=== PATIENT | female | born 1990 | race Two or more races ===

== ENCOUNTER 2024-11-11 17:37 | Inpatient (IN) | payer MEDICAID, OTHER ==
[~2024-11-11] VITALS: Ht 162.6 cm; Wt 113.7 kg
[2024-11-11 18:55] LABS: Basophils # (auto) 0 10 ^3/uL (0-0.2); Basophils % (auto) 0.2 % (0.0-2.0); Eosinophils # (auto) 0 10 ^3/uL (0-0.8); Hematocrit 42.1 % (36.0-46.0); Hemoglobin 14.1 g/dL (12.2-16.2); Lymphocytes # (auto) 1.2 10 ^3/uL (0.4-5.4); Lymphocytes % (auto) 7.1 % (10.0-50.0); Mean Corpuscular Hemoglobin 32.2 pg (28.0-32.0); Mean Corpuscular Hgb Conc. 33.5 g/dL (32.0-36.0); Mean Corpuscular Volume 96.1 fL (80.0-100.0); Monocytes # (auto) 0.5 10 ^3/uL (0-1.3); Monocytes % (auto) 2.9 % (0.0-12.0); Neutrophils # (auto) 15.2 10 ^3/uL (1.6-8.6); Neutrophils % (auto) 89.8 % (37.0-80.0); Nucleated Red Blood Cells % 0.1 %; Platelet Count (auto) 301 10^3/uL (140-450); Red Blood Cells 4.38 10^6/uL (4.0-5.20); Red Cell Distribution Width 12.4 % (11.8-14.3); White Blood Cell 16.9 10^3/uL (4.4-10.8)
[2024-11-11] MEDS: ONDANSETRON ODT 4 MG TAB PO ONE (18:56)
[2024-11-11] MEDS: ACETAMINOPHEN/CODEINE#3 (300/30mg) TAB PO ONE (18:56)
[2024-11-11 18:57] LABS: Urine Bacteria FEW /hpf (None Seen); Urine Blood 2+ /uL (Negative); Urine Clarity Turbid (Clear); Urine Color Light-Orange (Yellow); Urine Mucus FEW (None Seen); Urine Protein, UAD 1+ (Negative); Urine Specific Gravity 1.033 (1.001-1.035); Urine Squamous Epithelial Cell FEW /hpf (<5); Urine Urobilinogen Normal (Negative); Urine WBC 1 /HPF (0-5)
--- NOTE | 2024-11-11 19:00 | ED.PDOC ---
GI ASSESSMENT HPI Comments 34-year-old female presents to ER with complaints of abdominal pain x1 day. Patient reports that she woke up with 8/10 left lower quadrant abdominal pain with radiation towards the left upper quadrant/epigastric region and associated n/v and diarrhea at 8:30 a.m. this morning. Denies use of medications for current symptoms. Patient presents to ER ambulatory on arrival, in mild distress and states she was doing "shots" of alcohol last night. Denies fever, body aches, chills, hematemesis, bloody diarrhea, chest pain, changes in urination or any further symptoms/complaints Chief Complaint: Abdominal Pain Time Seen by MD: 18:16 Primary Care Provider: UNKNOWN Reviewed Notes: Nurses Notes, Medications, Allergies Allergies: Coded Allergies: NO KNOWN ALLERGIES (Unverified , 11/11/24) Information Source: Patient Mode of Arrival: Ambulatory Past Medical History PAST MEDICAL HISTORY: Denies Surgical History: Denies all surgeries REGULATORY CONSULTANT History: No Pertinent REGULATORY CONSULTANT History Family History Family History: Unknown Social History Smoker: Non-Smoker Alcohol: Occasionally Drugs: Marijuana Lives In: Home Constitutional: denies: chills, diaphoresis, fatigue, fever, malaise, sweats, weakness, others EENTM: denies: blurred vision, double vision, ear bleeding, ear discharge, ear drainage, ear pain, ear ringing, eye pain, eye redness, hearing loss, mouth pain, mouth swelling, nasal discharge, nose bleeding, nose congestion, nose pain, photophobia, tearing, throat pain, throat swelling, voice changes, others Respiratory: denies: cough, hemoptysis, orthopnea, SOB at rest, shortness of breath, SOB with excertion, stridor, wheezing, others Cardiovascular: denies: chest pain, dizzy spells, diaphoresis, Dyspnea on exertion, edema, irregular heart beat, left arm pain, lightheadedness, palpitations, PND, syncope, others Gastrointestinal: reports: others (As stated in HPI) Genitourinary: denies: abnormal vagina bleeding, burning, dyspareunia, dysuria, flank pain, frequency, hematuria, incontinence, pain, , vagina discharge, urgency, others Neurological: denies: dizziness, fainting, headache, left sided numbness, left sided weakness, numbness, paresthesia, pre-existing deficit, right sided numbnes s, right sided weakness, seizure, speech problems, tingling, tremors, weakness, others Musculoskeletal: denies: back pain, gout, joint pain, joint swelling, muscle pain, muscle stiffness, neck pain, others Integumetry: denies: bruises, change in color, change in hair/nails, dryness, laceration, lesions, lumps, rash, wounds, others Allergic/Immunocompromised: denies: Difficulty Healing, Frequent Infections, Hives, Itching, others Hematologic/Lymphatic: denies: anemia, blood clots, easy bleeding, easy bruising, swollen glands, others Endocrine: denies: excessive hunger, excessive sweating, excessive thirst, excessive urination, flushing, intolerance to cold, intolerance to heat, unexplained weight gain, unexplained weight loss, others Psychiatric: denies: anxiety, bipolar disorder, depression, hopeless, panic disorder, schizophrenia, sleepless, suicidal, others Physical Exam General Appearance: Mild Distress, Obese HEENT: PERRL/EOMI Neck: Full Range of Motion, Non-Tender, Normal Respiratory: Chest Non-Tender, Lungs Clear, No Accessory Muscle Use, No Respiratory Distress, Normal Breath Sounds Cardiovascular: No Murmur, No Gallop, Regular Rate/Rhythm Breast Exam: Deferred Gastrointestinal: No Organomegaly, No Pulsatile Mass, Normal Bowel Sounds, Soft, Other (TTP to left lower quadrant of abdomen and left upper quadrant/epigastric region abdomen noted. No rebound/guarding noted. No hernia/masses/skin changes appreciated. No other tenderness to abdomen noted) Genitalia: Deferred Pelvic: Deferred Rectal: Deferred Extremities: Normal capillary refill, Normal range of motion Neurologic: Alert, No Motor Deficits, No Sensory Deficits Cerebellar Function: Normal Reflexes: Normal Skin: Dry, Normal Color, Warm Peripheral Pulses: 2+ Radial (R), 2+ Radial (L), 2+ Brachial (R), 2+ Brachial ( L) Lymphatic: No Adenopathy Was a procedure done? Was a procedure done?: No Sedation Sedation?: No GI differential Dx Differential Diagnosis: AAA, Appendicitis, Ischemic Bowel, Trauma intraabdominal, UTI X-Ray, Labs, Meds, VS Vital Signs Date Time Temp Pulse Resp B/P (MAP) Pulse Ox O2 Delivery O2 Flow Rate FiO2 11/11/24 20:31 68 16 127/89 11/11/24 20:26 97.7 68 16 127/89 (102) 100 97.7 11/11/24 18:40 98.0 98 19 134/78 (96) 98 98.0 11/11/24 18:40 98 19 98 Room Air 11/11/24 18:12 98.0 98 19 134/78 (96) 99 Lab Test 11/11/24 20:43 11/11/24 19:26 11/11/24 18:29 11/11/24 18:10 Range/Units Lactic Acid Level 2.0 0.4-2.0 mmol/L Influenza Type A Antigen Negative Negative Influenza Type B Antigen Negative Negative SARS-CoV-2 Antigen (Rapid) Negative NEGATIVE White Blood Count 16.9 H 4.4-10.8 10^3/uL Red Blood Count 4.38 4.0-5.20 10^6/uL Hemoglobin 14.1 12.2-16.2 g/dL Hematocrit 42.1 36.0-46.0 % Mean Corpuscular Volume 96.1 80.0-100.0 fL Mean Corpuscular Hemoglobin 32.2 H 28.0-32.0 pg Mean Corpuscular Hemoglobin Concent 33.5 32.0-36.0 g/dL Red Cell Distribution Width 12.4 11.8-14.3 % Platelet Count 301 140-450 10^3/uL Mean Platelet Volume 9.0 6.9-10.8 fL Neutrophils (%) (Auto) 89.8 H 37.0-80.0 % Lymphocytes (%) (Auto) 7.1 L 10.0-50.0 % Monocytes (%) (Auto) 2.9 0.0-12.0 % Eosinophils (%) (Auto) 0.0 0.0-7.0 % Basophils (%) (Auto) 0.2 0.0-2.0 % Neutrophils # (Auto) 15.2 H 1.6-8.6 10 ^3/uL Lymphocytes # (Auto) 1.2 0.4-5.4 10 ^3/uL Monocytes # (Auto) 0.5 0-1.3 10 ^3/uL Eosinophils # (Auto) 0 0-0.8 10 ^3/uL Basophils # (Auto) 0 0-0.2 10 ^3/uL Nucleated Red Blood Cells 0.1 % Sodium Level 135 L 136-145 mmol/L Potassium Level 3.9 3.5-5.1 mmol/L Chloride Level 104 98-107 mmol/L Carbon Dioxide Level 18 L 20-31 mmol/L Anion Gap 13 5-15 Blood Urea Nitrogen 10 9-23 mg/dL Creatinine 0.67 0.550-1.02 mg/dL Glomerular Filtration Rate Calc 118 >90 mL/min BUN/Creatinine Ratio 14.9 10.0-20.0 Serum Glucose 113 H 74-106 mg/dL Calcium Level 9.9 8.7-10.4 mg/dL Total Bilirubin 0.8 0.2-1.0 mg/dL Aspartate Amino Transferase (AST) 34 13-40 U/L Alanine Aminotransferase (ALT) 15 7-40 U/L Alkaline Phosphatase 72 46-116 U/L Lactate Dehydrogenase 257 H 120-246 U/L Lipase 1275 H 12-53 U/L Urine Color Light-orange Yellow Urine Clarity Turbid H Clear Urine pH 6.0 5.0-9.0 Urine Specific [place] 1.033 1.001-1.035 Urine Protein 1+ H Negative Urine Ketones 1+ H Negative Urine Blood 2+ H Negative /uL Urine Nitrite Negative Negative Urine Bilirubin Negative Negative Urine Urobilinogen Normal Negative mg/dL Urine Leukocyte Esterase Negative Negative /uL Urine RBC 3 0 - 4 /hpf Urine Microscopic WBC 1 0-5 /HPF Urine Squamous Epithelial Cells Few <5 /hpf Urine Bacteria Few H None Seen /hpf Urine Mucus Few None Seen Urine Glucose Normal Normal mg/dL Current Medications Medications (Trade) Dose Ordered Sig/Adriana Route Start Time Stop Time Status Last Admin Sodium Chloride 1,000 ml @ 1,000 mls/hr Q1H ONCE IV 11/11/24 18:45 11/11/24 19:44 DC 11/11/24 20:47 Ondansetron HCl (Zofran Po) 4 mg ONCE ONCE PO 11/11/24 18:45 11/11/24 18:46 DC 11/11/24 18:56 Acetaminophen/ Codeine Phosphate (Tylenol W/Cod #3 Tablet) 1 tab ONCE ONCE PO 11/11/24 18:45 11/11/24 18:46 DC 11/11/24 18:56 Sodium Chloride 1,000 ml @ 1,000 mls/hr Q1H ONCE IV 11/11/24 19:45 11/11/24 20:44 DC 11/12/24 01:02 Morphine Sulfate 2 mg ONCE ONCE IM 11/11/24 20:30 11/11/24 20:31 DC 11/11/24 20:31 Ciprofloxacin 200 ml @ 200 mls/hr ONCE ONCE IV 11/11/24 20:30 11/11/24 21:29 DC 11/11/24 20:48 Metronidazole 100 ml @ 100 mls/hr ONCE ONCE IV 11/11/24 20:30 11/11/24 21:29 DC 11/11/24 21:01 Sodium Chloride 1,000 ml @ 120 mls/hr Q8H20M IV 11/11/24 21:00 11/12/24 02:34 Morphine Sulfate 2 mg Q4HPRN PRN IV 11/11/24 21:00 11/12/24 02:06 PATIENT: TIMO FARR ACCT: [id number] UNIT: [id number] : 1990 LOC: ER ROOM / BED: / AGE / SEX: 34 / F ADM STATUS: REG ER SERVICE 152 ORDERING PHYSICIAN: MICHELLE CLINE PROCEDURE(s): ABPL - CT AB PEL WO CON-NO ORAL OR IV REASON: abdominal pain ORDER NUMBER(s): [id number], ACCESSION NUMBER(s): [id number] CLINICAL HISTORY: abdominal pain TECHNIQUE: CT of the abdomen and pelvis was performed without intravenous contrast. This exam was performed according to our departmental dose optimization program. Up-to-date CT equipment and radiation dose reduction techniques are utilized as appropriate. CTDI: 25.15 DLP: 1295.37 WID: COMPARISON: None FINDINGS: Lower Thorax: Unremarkable. Liver and Biliary system: Hepatomegaly with the right lobe of the liver measuring 19 cm craniocaudal. Otherwise unremarkable. Spleen: Unremarkable. Adrenal Glands and Kidneys: Unremarkable. Pancreas and Retroperitoneum: There is peripancreatic fluid and soft tissue stranding. There is no loculated fluid collection. There is no retroperitoneal lymphadenopathy. Aorta and Major Vessels: Unremarkable. Bowel, Mesentery and Peritoneal space: Mild ascites predominantly in the pelvis. Normal appendix. There is submucosal fatty deposition in the ascending colon and hepatic flexure. There is no free air or fluid collection. Pelvis: The uterus is grossly unremarkable. There are small hypodensities in both ovaries probably follicular cysts although not optimally evaluated by CT. There is no pelvic lymphadenopathy. The urinary bladder is mildly distended. Abdominal wall and Osseous Structures: Small fat containing umbilical hernia. No destructive osseous lesion. Minor lower thoracic and lumbar spondylosis. IMPRESSION: 1. Acute pancreatitis. 2. Mild hepatomegaly. 3. Submucosal fatty deposition in the ascending colon and hepatic flexure which may be incidental or related to prior inflammatory bowel disease. ATED BY: DES MARTÍNEZ MD DICTATED DATE/TIME: 11/11/242006 SIGNED BY: DES MARTÍNEZ MD SIGNED DATE/TIME: 11/11/242006 CC: CBC reviewed-WBC 16.9, neutrophils 89.8 BMP reviewed-sodium level 135 Lipase 1275 reviewed Liver enzymes reviewed without any significant abnormalities Urinalysis reviewed-urine ketones 1+, urine blood 2+ CT abdomen/pelvis without contrast reviewed waiver signed Hep-Lock IV ordered NS 2 L IV ordered Zofran 4 mg p.o. ordered Tylenol # 3 one tablet p.o. ordered Morphine 2 mg IM ordered Cipro 400 mg IV ordered Metronidazole 500 mg IV ordered NPO diet placed Patient admitted to hospitalist for acute pancreatitis and need for IV hydration/pain control Time of 1ST Reevaluation: 18:44 Reevaluation 1ST: N/A Time of 2ND Reevaluation: 20:10 Reevaluation 2ND: Improved Patient Education/Counseling: Diagnosis, Treatment, Prognosis, Need For Follow Up Family Education/Counseling: No Family Present Departure 1 Departure Time of Disposition: 20:12 Impression: Primary Impression: Acute pancreatitis Qualified Codes: K85.20 - Alcohol induced acute pancreatitis without necrosis or infection Disposition: ADMITTED INPATIENT Condition: Stable Critical Care Note Critical Care Time?: No Stability Stability form required: No Heart Score Heart Score: Heart Score Response (Comments) Value History N/A 0 EKG N/A 0 Age N/A 0 Risk Factors N/A 0 Troponin N/A 0 Total 0 MICHELLE CLINE Nov 11, 2024 19:00
[2024-11-11 19:02] LABS: Chloride 104 mmol/L (98-107); Potassium 3.9 mmol/L (3.5-5.1)
[2024-11-11 19:03] LABS: Anion Gap 13 (5-15)
[2024-11-11 19:04] LABS: Calcium 9.9 mg/dL (8.7-10.4)
[2024-11-11 19:09] LABS: BUN/Creatinine Ratio 14.9 (10.0-20.0); Blood Urea Nitrogen 10 mg/dL (9-23); Carbon Dioxide 18 mmol/L (20-31); Glucose 113 mg/dL (74-106); Sodium 135 mmol/L (136-145)
[2024-11-11 19:18] LABS: Lipase 1275 U/L (12-53)
[2024-11-11] MEDS ORDERED: MORPHINE SULFATE INJ 2 MG/ml SYRG IV ONE (20:00)
--- NOTE | 2024-11-11 20:10 | DVH ---
CLINICAL HISTORY: abdominal pain TECHNIQUE: CT of the abdomen and pelvis was performed without intravenous contrast. This exam was per formed according to our departmental dose optimization program. Up-to-date CT equipment and radiation dose reduction techniques are utilized as appropriate. CTDI: 25.15 DLP: 1295.37 WID: COMPARISON: None FINDINGS: Lower Thorax: Unremarkable. Liver and Biliary system: Hepatomegaly with the right lobe of the liver measuring 19 cm craniocaudal. Otherwise unremarkable. Spleen: Unremarkable. Adrenal Glands and Kidneys: Unremarkable. Pancreas and Retroperitoneum: There is peripancreatic fluid and soft tissue stranding. There is no lo culated fluid collection. There is no retroperitoneal lymphadenopathy. Aorta and Major Vessels: Unremarkable. Bowel, Mesentery and Peritoneal space: Mild ascites predominantly in the pelvis. Normal appendix. Th ere is submucosal fatty deposition in the ascending colon and hepatic flexure. There is no free air o r fluid collection. Pelvis: The uterus is grossly unremarkable. There are small hypodensities in both ovaries probably fo llicular cysts although not optimally evaluated by CT. There is no pelvic lymphadenopathy. The urinar y bladder is mildly distended. Abdominal wall and Osseous Structures: Small fat containing umbilical hernia. No destructive osseous lesion. Minor lower thoracic and lumbar spondylosis. IMPRESSION: 1. Acute pancreatitis. 2. Mild hepatomegaly. 3. Submucosal fatty deposition in the ascending colon and hepatic flexure which may be incidental or related to prior inflammatory bowel disease.
[2024-11-11] MEDS ORDERED: cefTRIAXone 1GM/50ML D5W 50 ML IV ONE (20:30)
[2024-11-11] MEDS: MORPHINE SULFATE INJ 2 MG/ml SYRG IM ONE (20:31)
[2024-11-11 20:39] LABS: COVID19 ANTIGEN SOFIA FIA NEGATIVE (NEGATIVE); Rapid Influenza A Negative (Negative); Rapid Influenza B Negative (Negative)
[2024-11-11 20:40] LABS: Bilirubin, Total 0.8 mg/dL (0.2-1.0)
[2024-11-11] MEDS: SODIUM CHLORIDE 0.9% 1,000 ML IV ONE (20:47)
[2024-11-11] MEDS: CIPROFLOXACIN 400MG/200ML 200 ML IV ONE (20:48)
[2024-11-11] MEDS: metroNIDAZOLE 500MG/100ML 100 ML IV ONE (21:01)
--- NOTE | 2024-11-11 22:06 | DVHHP2 ---
History of Present Illness Reason for Visit: Acute pancreatitis History of Present Illness The patient is a 34-year-old female who denies past medical history presented to [facility] ED with complaint of abdominal pain. Patient reports that she woke up with 8/10 left lower quadrant abdominal pain with radiation towards the left upper quadrant/epigastric region and associated nausea, vomiting, and diarrhea this morning. Patient was seen and evaluated in the ED, laboratory data shows WBC 16.9, platelets 301, sodium 135, potassium 3.9, BUN 10, creatinine 0.67, GFR 118, glucose 113, lipase 1275. CT of the abdomen/pelvis revealing acute pancreatitis, mild hepatomegaly. Patient was started on IV a ntibiotic regimen Rocephin, IV Flagyl, please see medication orders section in the computer. On my assessment, patient denied chest pain, no headache, no dizziness, no shortness of breaths, no abdominal pain, nausea or vomiting at this moment, no fever, no chills. Patient was admitted for further evaluation and medical management. Past Medical History Denies past medical history Past Surgical History Denies all surgeries Family History Reviewed, noncontributory to the management of this case. Past Social History The patient lives at home, denies smoking, alcohol or illicit drugs abuse. Review of Systems Constitutional: No: Fever, Chills, Sweats, Weakness, Malaise, Other Eyes: No: Pain, Vision change, Conjunctivae inflammation, Eyelid inflammation, Other, Redness ENT: No: Ear pain, Ear discharge, Nose pain, Nose discharge, Nose congestion, Mouth pain, Mouth swelling, Throat pain, Throat swelling, Other Respiratory: No: Cough, Dry, Shortness of breath, SOB with excertion, Wheezing, Hemoptysis, Pleuritic Pain, Sputum, Wheezing, Other Cardiovascular: No: Chest Pain, Palpitations, Orthopnea, Paroxysmal Noc. Dyspnea, Edema, Lt Headedness, Other Gastrointestinal: Nausea, Vomiting, Abdominal Pain, Diarrhea; No: Constipation, Melena, Hematochezia, Other Genitourinary: No Dysuria, No Frequency, No Incontinence, No Hematuria, No Retention, No Other Musculoskeletal: No: other, neck pain, shoulder pain, arm pain, back pain, hand pain, leg pain, foot pain Skin: No: Rash, Lesions, Jaundice, Bruising, Other Neurological: No: Weakness, Numbness, Incoordination, Change in speech, Confusion, Seizures, Other Allergies: Coded Allergies: NO KNOWN ALLERGIES (Unverified , 11/11/24) Medications Current Medications Medications Dose Ordered Sig/Adriana Route Start Time Stop Time Status Last Admin Dose Admin Ceftriaxone Sodium 50 ml @ 100 mls/hr DAILY@09 IV 11/12/24 09:00 Metronidazole 100 ml @ 100 mls/hr Q8HR IV 11/12/24 06:00 Sodium Chloride 1,000 ml @ 120 mls/hr Q8H20M IV 11/11/24 21:00 Acetaminophen/ Hydrocodone Bitart 1 tab Q4HP PRN PO 11/11/24 21:00 Ondansetron HCl 4 mg Q4HP PRN IV 11/11/24 21:00 Acetaminophen 650 mg Q6HP PRN PO 11/11/24 21:00 Morphine Sulfate 2 mg Q4HPRN PRN IV 11/11/24 21:00 Exam Vital Signs Vital Signs Date Time Temp Pulse Resp B/P (MAP) Pulse Ox O2 Delivery O2 Flow Rate FiO2 11/11/24 20:31 68 16 127/89 11/11/24 20:26 97.7 100 97.7 11/11/24 18:40 Room Air General Appearance: Alert, Oriented X3, Cooperative, No acute distress HEENT: Atraumatic, PERRLA, EOMI, Mucous membr. moist/pink Respiratory: Clear to auscultation, Normal air movement Cardiovascular: Regular rate, Normal S1, Normal S2, No murmurs Abdominal: Normal bowel sounds, Soft, No hepatospenomegaly, No masses, Other (Reports tenderness) Extremities: No clubbing, No cyanosis, No edema, Normal pulses, No tenderness/swelling Skin: No rashes, No breakdown, No significant lesion Neuro: Normal gait, Normal speech, Strength at 5/5 X4 ext, Normal tone, Sensation intact, Cranial nerves 3-12 NL, Reflexes 2+ Psych/Mental Status: Mental status NL, Mood NL Labs/Xrays Labs Test 11/11/24 20:43 11/11/24 19:26 11/11/24 18:29 11/11/24 18:10 Range/Units Lactic Acid Level 2.0 0.4-2.0 mmol/L Influenza Type A Antigen Negative Negative Influenza Type B Antigen Negative Negative SARS-CoV-2 Antigen (Rapid) Negative NEGATIVE White Blood Count 16.9 H 4.4-10.8 10^3/uL Red Blood Count 4.38 4.0-5.20 10^6/uL Hemoglobin 14.1 12.2-16.2 g/dL Hematocrit 42.1 36.0-46.0 % Mean Corpuscular Volume 96.1 80.0-100.0 fL Mean Corpuscular Hemoglobin 32.2 H 28.0-32.0 pg Mean Corpuscular Hemoglobin Concent 33.5 32.0-36.0 g/dL Red Cell Distribution Width 12.4 11.8-14.3 % Platelet Count 301 140-450 10^3/uL Mean Platelet Volume 9.0 6.9-10.8 fL Neutrophils (%) (Auto) 89.8 H 37.0-80.0 % Lymphocytes (%) (Auto) 7.1 L 10.0-50.0 % Monocytes (%) (Auto) 2.9 0.0-12.0 % Eosinophils (%) (Auto) 0.0 0.0-7.0 % Basophils (%) (Auto) 0.2 0.0-2.0 % Neutrophils # (Auto) 15.2 H 1.6-8.6 10 ^3/uL Lymphocytes # (Auto) 1.2 0.4-5.4 10 ^3/uL Monocytes # (Auto) 0.5 0-1.3 10 ^3/uL Eosinophils # (Auto) 0 0-0.8 10 ^3/uL Basophils # (Auto) 0 0-0.2 10 ^3/uL Nucleated Red Blood Cells 0.1 % Sodium Level 135 L 136-145 mmol/L Potassium Level 3.9 3.5-5.1 mmol/L Chloride Level 104 98-107 mmol/L Carbon Dioxide Level 18 L 20-31 mmol/L Anion Gap 13 5-15 Blood Urea Nitrogen 10 9-23 mg/dL Creatinine 0.67 0.550-1.02 mg/dL Glomerular Filtration Rate Calc 118 >90 mL/min BUN/Creatinine Ratio 14.9 10.0-20.0 Serum Glucose 113 H 74-106 mg/dL Calcium Level 9.9 8.7-10.4 mg/dL Total Bilirubin 0.8 0.2-1.0 mg/dL Aspartate Amino Transferase (AST) 34 13-40 U/L Alanine Aminotransferase (ALT) 15 7-40 U/L Alkaline Phosphatase 72 46-116 U/L Lactate Dehydrogenase 257 H 120-246 U/L Lipase 1275 H 12-53 U/L Urine Color Light-orange Yellow Urine Clarity Turbid H Clear Urine pH 6.0 5.0-9.0 Urine Specific [place] 1.033 1.001-1.035 Urine Protein 1+ H Negative Urine Ketones 1+ H Negative Urine Blood 2+ H Negative /uL Urine Nitrite Negative Negative Urine Bilirubin Negative Negative Urine Urobilinogen Normal Negative mg/dL Urine Leukocyte Esterase Negative Negative /uL Urine RBC 3 0 - 4 /hpf Urine Microscopic WBC 1 0-5 /HPF Urine Squamous Epithelial Cells Few <5 /hpf Urine Bacteria Few H None Seen /hpf Urine Mucus Few None Seen Urine Glucose Normal Normal mg/dL PATIENT: TIMO FARR ACCT: [id number] UNIT: [id number] : 1990 LOC: ER ROOM / BED: / AGE / SEX: 34 / F ADM STATUS: REG ER SERVICE 36 ORDERING PHYSICIAN: MICHELLE CLINE PROCEDURE(s): ABPL - CT AB PEL WO CON-NO ORAL OR IV REASON: abdominal pain ORDER NUMBER(s): [id number], ACCESSION NUMBER(s): [id number] CLINICAL HISTORY: abdominal pain TECHNIQUE: CT of the abdomen and pelvis was performed without intravenous contrast. This exam was performed according to our departmental dose optimization program. Up-to-date CT equipment and radiation dose reduction techniques are utilized as appropriate. CTDI: 25.15 DLP: 1295.37 WID: COMPARISON: None FINDINGS: Lower Thorax: Unremarkable. Liver and Biliary system: Hepatomegaly with the right lobe of the liver measuring 19 cm craniocaudal. Otherwise unremarkable. Spleen: Unremarkable. Adrenal Glands and Kidneys: Unremarkable. Pancreas and Retroperitoneum: There is peripancreatic fluid and soft tissue stranding. There is no loculated fluid collection. There is no retroperitoneal lymphadenopathy. Aorta and Major Vessels: Unremarkable. Bowel, Mesentery and Peritoneal space: Mild ascites predominantly in the pelvis. Normal appendix. There is submucosal fatty deposition in the ascending colon and hepatic flexure. There is no free air or fluid collection. Pelvis: The uterus is grossly unremarkable. There are small hypodensities in both ovaries probably follicular cysts although not optimally evaluated by CT. There is no pelvic lymphadenopathy. The urinary bladder is mildly distended. Abdominal wall and Osseous Structures: Small fat containing umbilical hernia. No destructive osseous lesion. Minor lower thoracic and lumbar spondylosis. IMPRESSION: 1. Acute pancreatitis. 2. Mild hepatomegaly. 3. Submucosal fatty deposition in the ascending colon and hepatic flexure which may be incidental or related to prior inflammatory bowel disease. Assessment/Plan Assessment/Plan Acute pancreatitis Acute abdominal pain Nausea and vomiting Alcohol induced acute pancreatitis without necrosis or infection Plan 1. Admit to med surge unit 2. Breathing treatment 3. Pain control management 4. Management of fluids and electrolytes 5. Consultation for GI/hospitalist 6. Diagnostic tests abdomen/pelvis CT 7. DVT prophylaxis on SCDs 8. Repeat labs CBC, CMP in a.m. 9. Continue with current medical management 10. Treatment plan discussed with patient and RN. Patient verbalized understanding. Plan discussed with: Patient, Other (RN) My Orders Orders - AN HERMOSILLO DNP Procedure Category Date Status Time Ceftriaxone 1gm/50ml PHA 11/12/24 In Process D5w (Rocephin) 09:00 * Gi Dvh Acid Tank Cleaner CONS 11/11/24 Transmitted 20:55 Allergies RENNY 11/11/24 In Process 20:55 Code Status CODE 11/11/24 Transmitted 20:55 Sodium Chloride 0.9% PHA 11/11/24 In Process 21:00 Oxygen Per Hour RT 11/11/24 Transmitted 20:55 Hydrocodone-Acet PHA 11/11/24 In Process 5/325mg Tab ([place] 21:00 Ondansetron Hcl PHA 11/11/24 In Process (Zofran) 21:00 Complete Blood Count LAB 11/12/24 Verified 04:00 Comprehensive LAB 11/12/24 Verified Metabolic Panel 04:00 Condition: Serious RENNY 11/11/24 In Process 20:55 Acetaminophen Tablet PHA 11/11/24 In Process (Tylenol Tablet) 21:00 Bedrest With Bathroom RENNY 11/11/24 In Process Privileg 20:55 Morphine Sulfate PHA 11/11/24 In Process Injection 21:00 Sequential RENNY 11/11/24 In Process Compression Device Metronidazole PHA 11/12/24 In Process 500mg/100ml (Flagyl 06:00 Problem List: (1) Acute pancreatitis (2) Acute abdominal pain (3) Nausea and vomiting (4) Alcohol induced acute pancreatitis without necrosis or infection Date of Service: Nov 11, 2024 Billing Provider: AN HERMOSILLO DNP Common Visit Codes: [id number]-[id number] INP/OBS CARE (HIGH) AN HERMOSILLO DNP Nov 11, 2024 22:06
[2024-11-11] MEDS ORDERED: NITROGLYCERIN 0.4 MG SL TAB SL PRN (22:15)
[2024-11-11] MEDS ORDERED: MORPHINE SULFATE INJ 2 MG/ml SYRG IV PRN (22:15)
[2024-11-11 23:37] VITALS: PULSE 75; RESP 18; TEMP 98.3; O2SAT 98
[2024-11-12 01:00] VITALS: BP 119/72; PULSE 75; RESP 18; TEMP 98.3; O2SAT 98
[2024-11-12] MEDS: SODIUM CHLORIDE 0.9% 1,000 ML IV ONE (01:02)
[2024-11-12] MEDS: MORPHINE SULFATE INJ 2 MG/ml SYRG IV PRN (02:06)
[2024-11-12] MEDS: SODIUM CHLORIDE 0.9% 1,000 ML IV SCH (02:34)
[2024-11-12] MEDS: ONDANSETRON HCL 4 MG/2 ML VIAL IV PRN (04:16)
[2024-11-12 05:00] VITALS: BP 130/87; PULSE 96; RESP 18; TEMP 97.5; O2SAT 98
[2024-11-12] MEDS: metroNIDAZOLE 500MG/100ML 100 ML IV SCH (06:30)
[2024-11-12 07:05] LABS: Basophils # (auto) 0 10 ^3/uL (0-0.2); Basophils % (auto) 0.1 % (0.0-2.0); Eosinophils # (auto) 0 10 ^3/uL (0-0.8); Eosinophils % (auto) 0.1 % (0.0-7.0); Hematocrit 38.7 % (36.0-46.0); Hemoglobin 12.9 g/dL (12.2-16.2); Lymphocytes % (auto) 6.6 % (10.0-50.0); Mean Corpuscular Hemoglobin 32.2 pg (28.0-32.0); Mean Corpuscular Hgb Conc. 33.4 g/dL (32.0-36.0); Mean Corpuscular Volume 96.6 fL (80.0-100.0); Monocytes % (auto) 6.3 % (0.0-12.0); Neutrophils # (auto) 13.3 10 ^3/uL (1.6-8.6); Neutrophils % (auto) 86.9 % (37.0-80.0); Platelet Count (auto) 289 10^3/uL (140-450); Red Cell Distribution Width 12.4 % (11.8-14.3); White Blood Cell 15.3 10^3/uL (4.4-10.8)
[2024-11-12 07:41] LABS: Alanine Aminotransferase 12 U/L (7-40); Alkaline Phosphatase 56 U/L (46-116); Anion Gap 11 (5-15); Aspartate Aminotransferase 15 U/L (13-40); Bilirubin, Total 0.7 mg/dL (0.2-1.0); Calcium 8.8 mg/dL (8.7-10.4); Carbon Dioxide 21 mmol/L (20-31); Chloride 107 mmol/L (98-107); Glucose 99 mg/dL (74-106); Sodium 139 mmol/L (136-145); Total Protein 6.6 g/dL (5.7-8.2)
[2024-11-12 07:42] LABS: Blood Urea Nitrogen 8 mg/dL (9-23); Potassium 3.1 mmol/L (3.5-5.1)
[2024-11-12] MEDS: HYDROcodone-ACET 5/325MG TAB PO PRN (08:40)
[2024-11-12] MEDS: cefTRIAXone 1GM/50ML D5W 50 ML IV SCH (08:41)
[2024-11-12 09:00] VITALS: BP 132/90; PULSE 74; RESP 18; TEMP 98; O2SAT 97
[2024-11-12 13:00] VITALS: BP 121/75; PULSE 65; RESP 20; TEMP 97.3; O2SAT 98
--- NOTE | 2024-11-12 15:26 | DVHINCON2 ---
Date of service: Nov 12, 2024 Referring Physician Venita Krishna Reason for Consultation Acute pancreatitis History of Present Illness The patient is a 34-year-old female who denies past medical history presented to [facility] ED with complaint of abdominal pain. Patient reports that she woke up with 8/10 left lower quadrant abdominal pain with radiation towards the left upper quadrant/epigastric region and associated nausea, vomiting, and diarrhea this morning. Her lipase was elevated to 1275. CT of the abdomen/pelvis revealing acute pancreatitis, mild hepatomegaly. Patient was started on IV antibiotic regimen Rocephin, IV Flagyl, Patient admits to drinking alcohol and believes that the pancreatitis could be related to this. She has not had any prior episode of pancreatitis. Currently she is still having pain but denies any nausea vomiting Past Medical History Past Medical History Denies past medical history Past Surgical History Past Surgical History Denies all surgeries Family History: FH: ovarian cancer G8 MOTHER FH: thyroid cancer G8 MOTHER Allergies: Coded Allergies: NO KNOWN ALLERGIES (Unverified , 11/11/24) Current Medications Current Medications Medications (Trade) Dose Ordered Sig/Adriana Route PRN Reason Start Time Stop Time Status Last Admin Ceftriaxone Sodium 50 ml @ 100 mls/hr DAILY@09 IV 11/12/24 09:00 11/12/24 08:41 Metronidazole 100 ml @ 100 mls/hr Q8HR IV 11/12/24 06:00 11/12/24 06:30 Sodium Chloride 1,000 ml @ 120 mls/hr Q8H20M IV 11/11/24 21:00 11/12/24 13:43 Acetaminophen/ Hydrocodone Bitart (Gove 5/325MG Tab) 1 tab Q4HP PRN PO MODERATE PAIN (4-6 PAIN SCALE) 11/11/24 21:00 11/12/24 13:43 Ondansetron HCl (Zofran) 4 mg Q4HP PRN IV NAUSEA / VOMITING 11/11/24 21:00 11/12/24 10:50 Acetaminophen (Tylenol Tablet) 650 mg Q6HP PRN PO PAIN SCALE 1-3 OR TEMP>100.4 11/11/24 21:00 Morphine Sulfate 2 mg Q4HPRN PRN IV SEVERE PAIN (7-10 PAIN SCALE) 11/11/24 21:00 11/12/24 10:51 Nitroglycerin (Ntrostat Sublingual) 0.4 mg Q5MINP PRN SL FOR CHEST PAIN 11/11/24 22:15 Morphine Sulfate 2 mg Q30M PRN IV FOR CHEST PAIN 11/11/24 22:15 Vital Signs Vital Signs Date Time Temp Pulse Resp B/P (MAP) Pulse Ox O2 Delivery O2 Flow Rate FiO2 11/12/24 13:00 97.3 65 20 121/75 (90) 98 97.3 11/12/24 08:00 Room Air* 0 21 Physical Exam General Appearance: Alert, Oriented X3, Cooperative, No acute distress, obese HEENT: Atraumatic, PERRLA, EOMI, Mucous membr. moist/pink Respiratory: Clear to auscultation, Normal air movement Cardiovascular: Regular rate, Normal S1, Normal S2, No murmurs Abdominal: Normal bowel sounds, Soft, No hepatospenomegaly, No masses, Other (Reports tenderness) Extremities: No clubbing, No cyanosis, No edema, Normal pulses, No tenderness/swelling Skin: No rashes, No breakdown, No significant lesion Neuro: Normal gait, Normal speech, Strength at 5/5 X4 ext, Normal tone, Sensation intact, Cranial nerves 3-12 NL, Reflexes 2+ Psych/Mental Status: Mental status NL, Mood NL Labs/Diagnostic Data Labs Test 11/12/24 06:09 11/11/24 20:43 11/11/24 19:26 11/11/24 18:29 Range/Units White Blood Count 15.3 H 4.4-10.8 10^3/uL Red Blood Count 4.00 4.0-5.20 10^6/uL Hemoglobin 12.9 12.2-16.2 g/dL Hematocrit 38.7 36.0-46.0 % Mean Corpuscular Volume 96.6 80.0-100.0 fL Mean Corpuscular Hemoglobin 32.2 H 28.0-32.0 pg Mean Corpuscular Hemoglobin Concent 33.4 32.0-36.0 g/dL Red Cell Distribution Width 12.4 11.8-14.3 % Platelet Count 289 140-450 10^3/uL Mean Platelet Volume 8.6 6.9-10.8 fL Neutrophils (%) (Auto) 86.9 H 37.0-80.0 % Lymphocytes (%) (Auto) 6.6 L 10.0-50.0 % Monocytes (%) (Auto) 6.3 0.0-12.0 % Eosinophils (%) (Auto) 0.1 0.0-7.0 % Basophils (%) (Auto) 0.1 0.0-2.0 % Neutrophils # (Auto) 13.3 H 1.6-8.6 10 ^3/uL Lymphocytes # (Auto) 1.0 0.4-5.4 10 ^3/uL Monocytes # (Auto) 1.0 0-1.3 10 ^3/uL Eosinophils # (Auto) 0 0-0.8 10 ^3/uL Basophils # (Auto) 0 0-0.2 10 ^3/uL Nucleated Red Blood Cells 0.0 % Sodium Level 139 136-145 mmol/L Potassium Level 3.1 L 3.5-5.1 mmol/L Chloride Level 107 98-107 mmol/L Carbon Dioxide Level 21 20-31 mmol/L Anion Gap 11 5-15 Blood Urea Nitrogen 8 L 9-23 mg/dL Creatinine 0.57 0.550-1.02 mg/dL Glomerular Filtration Rate Calc 123 >90 mL/min BUN/Creatinine Ratio 14.0 10.0-20.0 Serum Glucose 99 74-106 mg/dL Calcium Level 8.8 8.7-10.4 mg/dL Total Bilirubin 0.7 0.2-1.0 mg/dL Aspartate Amino Transferase (AST) 15 13-40 U/L Alanine Aminotransferase (ALT) 12 7-40 U/L Alkaline Phosphatase 56 46-116 U/L Total Protein 6.6 5.7-8.2 g/dL Albumin 4.0 3.2-4.8 g/dL Lactic Acid Level 2.0 0.4-2.0 mmol/L Influenza Type A Antigen Negative Negative Influenza Type B Antigen Negative Negative SARS-CoV-2 Antigen (Rapid) Negative NEGATIVE Lactate Dehydrogenase 257 H 120-246 U/L Lipase 1275 H 12-53 U/L Test 11/11/24 18:10 Range/Units Urine Color Light-orange Yellow Urine Clarity Turbid H Clear Urine pH 6.0 5.0-9.0 Urine Specific [place] 1.033 1.001-1.035 Urine Protein 1+ H Negative Urine Ketones 1+ H Negative Urine Blood 2+ H Negative /uL Urine Nitrite Negative Negative Urine Bilirubin Negative Negative Urine Urobilinogen Normal Negative mg/dL Urine Leukocyte Esterase Negative Negative /uL Urine RBC 3 0 - 4 /hpf Urine Microscopic WBC 1 0-5 /HPF Urine Squamous Epithelial Cells Few <5 /hpf Urine Bacteria Few H None Seen /hpf Urine Mucus Few None Seen Urine Glucose Normal Normal mg/dL CT SCAN ABD PELVIS MPRESSION: 1. Acute pancreatitis. 2. Mild hepatomegaly. 3. Submucosal fatty deposition in the ascending colon and hepatic flexure which may be incidental or related to prior inflammatory bowel disease. Problems(with codes): (1) Leukocytosis (2) Alcohol induced acute pancreatitis without necrosis or infection (3) Acute pancreatitis (4) Acute abdominal pain (5) Nausea and vomiting Plan/Recommendation Plan IV fluid hydration Pain control Monitor labs Continue supportive care Patient was counseled about discontinuing alcohol Plan discussed with: Patient PAULA HYAWARD MD Nov 12, 2024 15:26
[2024-11-12 17:00] VITALS: BP 131/89; PULSE 87; RESP 18; TEMP 97.5; O2SAT 98
[2024-11-12 21:00] VITALS: BP 131/76; PULSE 71; RESP 18; TEMP 98; O2SAT 98
--- NOTE | 2024-11-12 22:23 | DVHPN2 ---
Subjective The patient seen and examined at bedside. The patient complained of severe abdominal pain and she wants to drink water. Reviewed: Care Plan, H&P, Labs, Medications, Previous Orders, Radiology Changes from previous H/P or p: No Changes Eyes: No Pain, No Vision change, No Conjunctivae inflammation, No Eyelid inflammation, No Other, No Redness ENT: No Ear pain, No Ear discharge, No Nose pain, No Nose discharge, No Nose congestion, No Mouth pain, No Mouth swelling, No Throat pain, No Throat swelling, No Other Cardiovascular: No Chest Pain, No Palpitations, No Orthopnea, No Paroxysmal Noc. Dyspnea, No Edema, No Lt Headedness, No Other Respiratory: No Cough, No Dry, No Shortness of breath, No SOB with excertion, No Wheezing, No Hemoptysis, No Pleuritic Pain, No Sputum, No Other Gastrointestinal: Nausea, Vomiting, Abdominal Pain, Diarrhea; No Constipation, No Melena, No Hematochezia, No Other Genitourinary: No Dysuria, No Frequency, No Incontinence, No Hematuria, No Retention, No Other Musculoskeletal: No other, No neck pain, No shoulder pain, No arm pain, No back pain, No hand pain, No leg pain, No foot pain Skin: No Rash, No Lesions, No Jaundice, No Bruising, No Other Objective Vitals Vital Signs Date Time Temp Pulse Resp B/P (MAP) Pulse Ox O2 Delivery O2 Flow Rate FiO2 11/12/24 21:00 98.0 71 18 131/76 (94) 98 98.0 11/12/24 08:00 Room Air* 0 21 Intake/Output Intake and Output 11/12/24 07:00 Intake Total 2300 ml Balance 2300 ml IV Total 2300 ml Tube Feeding 0 ml General Appearance: Alert, Oriented X3, Cooperative, No acute distress HEENT: Atraumatic, PERRLA, EOMI, Mucous membr. moist/pink Neck: Supple Lungs: Clear to auscultation, Normal air movement Cardiovascular: Regular rate, Normal S1, Normal S2, No murmurs, Gallops, Rubs Abdomen: Normal bowel sounds, Soft, No tenderness Neuro: Cranial nerves 3-12 NL Psych/Mental Status: Mental status NL Medications Current Medications Medications Dose Ordered Sig/Adriana Route Start Time Stop Time Status Last Admin Dose Admin Ceftriaxone Sodium 50 ml @ 100 mls/hr DAILY@09 IV 11/12/24 09:00 11/12/24 08:41 100 MLS/HR Metronidazole 100 ml @ 100 mls/hr Q8HR IV 11/12/24 06:00 11/12/24 22:16 100 MLS/HR Sodium Chloride 1,000 ml @ 120 mls/hr Q8H20M IV 11/11/24 21:00 11/12/24 13:43 120 MLS/HR Acetaminophen/ Hydrocodone Bitart 1 tab Q4HP PRN PO 11/11/24 21:00 11/12/24 20:56 1 TAB Ondansetron HCl 4 mg Q4HP PRN IV 11/11/24 21:00 11/12/24 15:53 4 MG Acetaminophen 650 mg Q6HP PRN PO 11/11/24 21:00 Morphine Sulfate 2 mg Q4HPRN PRN IV 11/11/24 21:00 11/12/24 15:58 2 MG Nitroglycerin 0.4 mg Q5MINP PRN SL 11/11/24 22:15 Morphine Sulfate 2 mg Q30M PRN IV 11/11/24 22:15 Laboratory Results Laboratory Tests 11/12/24 06:09 Chemistry Test 11/12/24 06:09 Albumin 4.0 g/dL (3.2-4.8) Calcium Level 8.8 mg/dL (8.7-10.4) Total Protein 6.6 g/dL (5.7-8.2) Lipid panel Test 11/12/24 06:09 Lipase 1405 U/L (12-53) H LFT Test 11/12/24 06:09 Alanine Aminotransferase (ALT) 12 U/L (7-40) Alkaline Phosphatase 56 U/L (46-116) Aspartate Amino Transferase (AST) 15 U/L (13-40) Total Bilirubin 0.7 mg/dL (0.2-1.0) Urinalysis Test 11/11/24 18:10 Urine Color Light-orange (Yellow) Urine Clarity Turbid (Clear) H Urine pH 6.0 (5.0-9.0) Urine Specific [place] 1.033 (1.001-1.035) Urine Protein 1+ (Negative) H Urine Ketones 1+ (Negative) H Urine Blood 2+ /uL (Negative) H Urine Nitrite Negative (Negative) Urine Bilirubin Negative (Negative) Urine Urobilinogen Normal mg/dL (Negative) Urine Leukocyte Esterase Negative /uL (Negative) Urine RBC 3 /hpf (0 - 4) Urine Microscopic WBC 1 /HPF (0-5) Urine Squamous Epithelial Cells Few /hpf (<5) Urine Bacteria Few /hpf (None Seen) H Urine Mucus Few (None Seen) Urine Glucose Normal mg/dL (Normal) Microbiology Microbiology Date/Time Source Procedure Growth Status 11/11/24 20:49 Blood Blood Culture - Preliminary NO GROWTH AFTER 24 HOURS OF INCUBATION. Resulted Labs and/or images reviewed: Labs reviewed by me Assessment/Plan Assessment/Plan Acute pancreatitis Acute abdominal pain Nausea and vomiting Alcohol induced acute pancreatitis without necrosis or infection Continuing current management. Continuing with IV fluid. Continuing with IV morphine and Gilead for pain control. Continuing with Zofran for nausea and vomiting. Explained to the patient that she needs to be NPO for now. I will give sponge for her mouth to improve the dryness. But no water yet This medical document was created using an electronic medical record system with [employer] direct computerized dictation system. Although this document has been carefully reviewed, there may still be some phonetic and typographical errors. These areas are purely typographical due to imperfections of the software programs, and do not reflect any compromise in the patient's medical care. Plan discussed with: Patient Date of Service: Nov 12, 2024 Billing Provider: HUNG ELAINE MD Common Visit Codes: [id number] INP/OBS CARE(HIGH) HUNG ELAINE MD Nov 12, 2024 22:23
[2024-11-13] VITALS (7 sets, daily range): BP systolic 119–150; BP diastolic 77–90; PULSE 76–97; RESP 17–20; TEMP 97.9–99.5; O2SAT 97–98
[2024-11-13 06:34] LABS: Hematocrit 37.8 % (36.0-46.0); Hemoglobin 12.5 g/dL (12.2-16.2); Mean Corpuscular Hemoglobin 31.9 pg (28.0-32.0); Mean Corpuscular Hgb Conc. 33.2 g/dL (32.0-36.0); Mean Corpuscular Volume 96.2 fL (80.0-100.0); Platelet Count (auto) 272 10^3/uL (140-450); Red Blood Cells 3.92 10^6/uL (4.0-5.20); Red Cell Distribution Width 12.6 % (11.8-14.3); White Blood Cell 17.7 10^3/uL (4.4-10.8)
[2024-11-13 07:40] LABS: Band Neutrophils % (manual) 0; Basophils % (manual) 0 (0.0-2.0); Blast Cells 0; Eosinophils % (manual) 0 (0-7); Metamyelocytes % 0; Myelocytes % 0; Promyelocytes % 0; Reactive Lymphocytes 0
[2024-11-13 08:50] LABS: Chloride 103 mmol/L (98-107); Sodium 137 mmol/L (136-145)
[2024-11-13 08:51] LABS: Anion Gap 12 (5-15); Carbon Dioxide 22 mmol/L (20-31)
[2024-11-13 08:52] LABS: Calcium 8.7 mg/dL (8.7-10.4)
[2024-11-13 08:53] LABS: Potassium 2.8 mmol/L (3.5-5.1)
[2024-11-13 08:56] LABS: Glucose 87 mg/dL (74-106)
[2024-11-13 08:57] LABS: BUN/Creatinine Ratio 9.1 (10.0-20.0); Blood Urea Nitrogen < 5 mg/dL (9-23)
[2024-11-13 09:06] LABS: Lipase 1310 U/L (12-53)
[2024-11-13 10:50] LABS: Lymphocytes % (manual) 5 (10.0-50.0); Monocytes % (manual) 4 (0-12); Platelet Estimate Adequate
[2024-11-13] MEDS: POTASSIUM CHL 20MEQ/100ML 100 ML IV SCH (12:33)
--- NOTE | 2024-11-13 14:23 | DVHPN2 ---
Progress Note Date Seen: Nov 13, 2024 Resident Creating Document: YELENA MOSLEY RESIDENT Medical Necessity Reason Pt with a Central, PICC or Fol: No Subjective Review of Systems Patient seen and examined at bedside No nausea or vomiting last 24 hours Patient is NPO for last 24 hours Mild epigastric abdominal pain No diarrhea No fever or chills No any other new complaints. Objective vital signs Vital Sign Date Time Temp Pulse Resp B/P (MAP) Pulse Ox O2 Delivery O2 Flow Rate FiO2 11/13/24 09:00 98.3 96 18 140/90 (107) 98 98.3 11/13/24 08:00 Room Air* 0 21 Total Intake and Output 11/12/24 11/12/24 11/13/24 15:00 23:00 07:00 Intake Total 150 ml 100 ml 0 ml Balance 150 ml 100 ml 0 ml medications Current Medications Medications Dose Ordered Sig/Adriana Route Start Time Stop Time Status Last Admin Dose Admin Ceftriaxone Sodium 50 ml @ 100 mls/hr DAILY@09 IV 11/12/24 09:00 11/13/24 09:47 100 MLS/HR Metronidazole 100 ml @ 100 mls/hr Q8HR IV 11/12/24 06:00 11/13/24 05:22 100 MLS/HR Sodium Chloride 1,000 ml @ 120 mls/hr Q8H20M IV 11/11/24 21:00 11/13/24 05:22 120 MLS/HR Acetaminophen/ Hydrocodone Bitart 1 tab Q4HP PRN PO 11/11/24 21:00 11/13/24 09:48 1 TAB Ondansetron HCl 4 mg Q4HP PRN IV 11/11/24 21:00 11/12/24 15:53 4 MG Acetaminophen 650 mg Q6HP PRN PO 11/11/24 21:00 Morphine Sulfate 2 mg Q4HPRN PRN IV 11/11/24 21:00 11/12/24 15:58 2 MG Nitroglycerin 0.4 mg Q5MINP PRN SL 11/11/24 22:15 Morphine Sulfate 2 mg Q30M PRN IV 11/11/24 22:15 Potassium Chloride 100 ml @ 50 mls/hr Q2H IV 11/13/24 11:15 11/13/24 17:14 11/13/24 12:33 50 MLS/HR Examination General Appearance: Cooperative. Well developed. Well nourished. NAD Head Exam: Normal inspection Neck Exam: Normal inspection. Non-tender. Normal alignment Pulmonary/Respiratory: Chest non-tender. Clear bilateral breath sounds Cardiovascular/Chest: Regular rate and rhythm. No murmurs. No JVD. Peripheral Pulses: 2+ Radial (R). 2+ Radial (L). 2+ Pedal (R). 2+ Pedal (L) Abdominal Exam: Normal bowel sounds. Soft. Nontender. No hepatospenomegaly. No masses Ankle Exam: Negative ankle edema Lower extremities: Negative lower extremity edema Neuro/Mental Status: A&O x4. Coherent Thoughts/Psych: Normal thought pattern. Appropriate mood and affect. Good judgement and insight Appearance: In no acute distress Skin Exam: Normal inspection. Normal color. Warm. Dry laboratory and microbiology Laboratory Tests 11/13/24 05:57 Test 11/13/24 05:57 Range/Units Serum Glucose 87 74-106 mg/dL Microbiology Date/Time Source Procedure Growth Status 11/11/24 20:49 Blood Blood Culture - Preliminary NO GROWTH AFTER 24 HOURS OF INCUBATION. Resulted Problem List/Assessment/Plan Problem List/Assessment/Plan Acute pancreatitis Likely alcohol induced acute pancreatitis Acute abdominal pain likely due to above Alcohol intoxication Plan/recommendation Dr. Bergeron -continue IV fluid hydration, pain control -monitor liver function and lipase level -currently NPO, srart clear liquid diet, if nausea or vomiting, keep her NPO -mild trending down lipase -continue supportive care -patient was counseled on alcohol cessation -we will continue to monitor this patient Plan discussed with: Patient, Other (RN) My Orders My Orders Orders - YELENA MOSLEY Procedure Category Date Status Time Potassium Chl PHA 11/13/24 In Process 20meq/100ml 11:15 YELENA MOSLEY Nov 13, 2024 14:23
[2024-11-13] MEDS: LACTATED RINGER'S 1,000 ML IV SCH (16:30)
--- NOTE | 2024-11-13 16:33 | DVHPN2 ---
Subjective Seen and examined at bedside. C/o Abdominal Pain. Keep NPO. Replace potassium. Reviewed: Care Plan, H&P, Labs, Medications, Previous Orders, Radiology Changes from previous H/P or p: No Changes Eyes: No Pain, No Vision change, No Conjunctivae inflammation, No Eyelid inflammation, No Other, No Redness ENT: No Ear pain, No Ear discharge, No Nose pain, No Nose discharge, No Nose congestion, No Mouth pain, No Mouth swelling, No Throat pain, No Throat swelling, No Other Cardiovascular: No Chest Pain, No Palpitations, No Orthopnea, No Paroxysmal Noc. Dyspnea, No Edema, No Lt Headedness, No Other Respiratory: No Cough, No Dry, No Shortness of breath, No SOB with excertion, No Wheezing, No Hemoptysis, No Pleuritic Pain, No Sputum, No Other Gastrointestinal: Nausea, Abdominal Pain; No Constipation, No Melena, No Hematochezia, No Other Genitourinary: No Dysuria, No Frequency, No Incontinence, No Hematuria, No Retention, No Other Musculoskeletal: No other, No neck pain, No shoulder pain, No arm pain, No back pain, No hand pain, No leg pain, No foot pain Skin: No Rash, No Lesions, No Jaundice, No Bruising, No Other Objective Vitals Vital Signs Date Time Temp Pulse Resp B/P (MAP) Pulse Ox O2 Delivery O2 Flow Rate FiO2 11/13/24 13:00 98.4 97 18 121/80 (94) 98 98.4 11/13/24 08:00 Room Air* 0 21 Intake/Output Intake and Output 11/13/24 07:00 Intake Total 250 ml Balance 250 ml Intake Oral 0 ml IV Total 250 ml # Voids 6 General Appearance: Alert, Oriented X3, Cooperative, No acute distress HEENT: Atraumatic, PERRLA, EOMI, Mucous membr. moist/pink Neck: Supple Lungs: Clear to auscultation, Normal air movement Cardiovascular: Regular rate, Normal S1, Normal S2, No murmurs, Gallops, Rubs Abdomen: Other (Obese, Tenderness) Neuro: Cranial nerves 3-12 NL Psych/Mental Status: Mental status NL Medications Current Medications Medications Dose Ordered Sig/Adriana Route Start Time Stop Time Status Last Admin Dose Admin Ceftriaxone Sodium 50 ml @ 100 mls/hr DAILY@09 IV 11/12/24 09:00 11/13/24 09:47 100 MLS/HR Metronidazole 100 ml @ 100 mls/hr Q8HR IV 11/12/24 06:00 11/13/24 14:00 100 MLS/HR Acetaminophen/ Hydrocodone Bitart 1 tab Q4HP PRN PO 11/11/24 21:00 11/13/24 09:48 1 TAB Ondansetron HCl 4 mg Q4HP PRN IV 11/11/24 21:00 11/12/24 15:53 4 MG Acetaminophen 650 mg Q6HP PRN PO 11/11/24 21:00 Morphine Sulfate 2 mg Q4HPRN PRN IV 11/11/24 21:00 11/12/24 15:58 2 MG Nitroglycerin 0.4 mg Q5MINP PRN SL 11/11/24 22:15 Morphine Sulfate 2 mg Q30M PRN IV 11/11/24 22:15 Potassium Chloride 100 ml @ 50 mls/hr Q2H IV 11/13/24 11:15 11/13/24 17:14 11/13/24 15:53 50 MLS/HR Lactated Ringer's 1,000 ml @ 125 mls/hr Q8H IV 11/13/24 16:30 UNV Laboratory Results Laboratory Tests 11/13/24 05:57 Chemistry Test 11/13/24 05:57 Calcium Level 8.7 mg/dL (8.7-10.4) Lipid panel Test 11/13/24 05:57 Lipase 1310 U/L (12-53) H Urinalysis Test 11/11/24 18:10 Urine Color Light-orange (Yellow) Urine Clarity Turbid (Clear) H Urine pH 6.0 (5.0-9.0) Urine Specific [place] 1.033 (1.001-1.035) Urine Protein 1+ (Negative) H Urine Ketones 1+ (Negative) H Urine Blood 2+ /uL (Negative) H Urine Nitrite Negative (Negative) Urine Bilirubin Negative (Negative) Urine Urobilinogen Normal mg/dL (Negative) Urine Leukocyte Esterase Negative /uL (Negative) Urine RBC 3 /hpf (0 - 4) Urine Microscopic WBC 1 /HPF (0-5) Urine Squamous Epithelial Cells Few /hpf (<5) Urine Bacteria Few /hpf (None Seen) H Urine Mucus Few (None Seen) Urine Glucose Normal mg/dL (Normal) Microbiology Microbiology Date/Time Source Procedure Growth Status 11/11/24 20:49 Blood Blood Culture - Preliminary NO GROWTH AFTER 24 HOURS OF INCUBATION. Resulted Assessment/Plan Assessment/Plan # SIRS due to Acute Pancreatitis - Merrem IV - LR IVF # Alcohol Induced Acute Pancreatitis - Barrel Cooper on cessation # Morbidly Obese - Barrel Cooper on weight loss # Hypokalemia - Supplement critical care time 39 mins Plan discussed with: Patient My Orders Orders - MYKEL MESA MD Procedure Category Date Status Time Lactated Ringer's PHA 11/13/24 Logged 16:30 Potassium Er Tablet PHA 11/13/24 Logged (Klor-Con Tablet) 16:30 Magnesium Oxide PHA 11/13/24 Logged Tablet (Mag-Ox Tablet) 16:30 Comprehensive LAB 11/14/24 Verified Metabolic Panel 04:00 Lipid Panel LAB 11/14/24 Verified 04:00 Hemoglobin A1c LAB 11/14/24 Verified 04:00 Phosphorus LAB 11/14/24 Verified 04:00 Magnesium LAB 11/14/24 Verified 04:00 Vitamin D, 25-Hydroxy LAB 11/13/24 Logged 16:26 Dye Machine Operator ORDERS 11/13/24 Transmitted 16:29 Meropenem 2gm Ivpb PHA 11/13/24 Verified Q8h (Gfr>50 22:00 Date of Service: Nov 13, 2024 Billing Provider: MYKEL MESA MD Common Visit Codes: [id number] CARE 30-74 MIN MYKEL MESA MD Nov 13, 2024 16:33
[2024-11-13] MEDS: MAGNESIUM OXIDE 400 MG TAB PO ONE (17:32)
[2024-11-13] MEDS: POTASSIUM CHL 20 Meq TABLET PO ONE (17:32)
[2024-11-13] MEDS: MEROPENEM 2GM/ 250ML 250 ML IV SCH (21:07)
[2024-11-14] VITALS (10 sets, daily range): BP systolic 116–134; BP diastolic 60–93; PULSE 86–117; RESP 7–20; TEMP 97.9–99.2; O2SAT 96–100
[2024-11-14 06:50] LABS: Albumin 3.7 g/dL (3.2-4.8); Alkaline Phosphatase 51 U/L (46-116); Anion Gap 8 (5-15); Aspartate Aminotransferase 14 U/L (13-40); Carbon Dioxide 26 mmol/L (20-31); Chloride 104 mmol/L (98-107); Glucose 92 mg/dL (74-106); LDL Cholesterol 39 mg/dL (< 100); Magnesium 2.1 mg/dL (1.6-2.6); Sodium 138 mmol/L (136-145); Total Protein 6.1 g/dL (5.7-8.2); Triglycerides 59 mg/dL (< 150)
[2024-11-14 06:51] LABS: Bilirubin, Total 0.6 mg/dL (0.2-1.0); Cholesterol 111 mg/dL (< 200); HDL Cholesterol 57 mg/dL (40-59)
[2024-11-14 07:08] LABS: BUN/Creatinine Ratio 8.3 (10.0-20.0); Blood Urea Nitrogen < 5 mg/dL (9-23); Potassium 2.8 mmol/L (3.5-5.1)
[2024-11-14 07:09] LABS: Alanine Aminotransferase < 9 U/L (7-40); Calcium 8.5 mg/dL (8.7-10.4); Phosphorus 1.4 mg/dL (2.4-5.1)
[2024-11-14 10:33] LABS: Lipase 322 U/L (12-53)
[2024-11-14] MEDS: MULTIPLE VITAMINS W/ MINERALS TAB PO SCH (10:51)
[2024-11-14] MEDS: THIAMINE 100mg/ml INJ (200mg/2ml VIAL) IV SCH (10:52)
[2024-11-14] MEDS: FOLIC ACID 1 MG in D5W 5% 50 ML INJ SCH (11:44)
--- NOTE | 2024-11-14 12:06 | DVHPN2 ---
Subjective Seen and examined at bedside. Abdominal pain improving. Potassium needs to be supplemented. Patient will be started on Full Liquid diet. Reviewed: Care Plan, H&P, Labs, Medications, Previous Orders, Radiology Changes from previous H/P or p: No Changes Eyes: No Pain, No Vision change, No Conjunctivae inflammation, No Eyelid inflammation, No Other, No Redness ENT: No Ear pain, No Ear discharge, No Nose pain, No Nose discharge, No Nose congestion, No Mouth pain, No Mouth swelling, No Throat pain, No Throat swelling, No Other Cardiovascular: No Chest Pain, No Palpitations, No Orthopnea, No Paroxysmal Noc. Dyspnea, No Edema, No Lt Headedness, No Other Respiratory: No Cough, No Dry, No Shortness of breath, No SOB with excertion, No Wheezing, No Hemoptysis, No Pleuritic Pain, No Sputum, No Other Gastrointestinal: No Nausea, No Vomiting, No Abdominal Pain, No Diarrhea, No Constipation, No Melena, No Hematochezia, No Other Genitourinary: No Dysuria, No Frequency, No Incontinence, No Hematuria, No Retention, No Other Musculoskeletal: No other, No neck pain, No shoulder pain, No arm pain, No back pain, No hand pain, No leg pain, No foot pain Skin: No Rash, No Lesions, No Jaundice, No Bruising, No Other Objective Vitals Vital Signs Date Time Temp Pulse Resp B/P (MAP) Pulse Ox O2 Delivery O2 Flow Rate FiO2 11/14/24 09:23 97.9 88 16 126/81 (96) 96 97.9 11/14/24 07:54 Room Air* 0 21 Intake/Output Intake and Output 11/14/24 07:00 Intake Total 1265 ml Balance 1265 ml Intake Oral 565 ml IV Total 700 ml # Voids 6 General Appearance: Alert, Oriented X3, Cooperative, No acute distress HEENT: Atraumatic, PERRLA, EOMI, Mucous membr. moist/pink Neck: Supple Lungs: Clear to auscultation, Normal air movement Cardiovascular: Regular rate, Normal S1, Normal S2, No murmurs, Gallops, Rubs Abdomen: Other (Obese, Tenderness) Neuro: Cranial nerves 3-12 NL Psych/Mental Status: Mental status NL Medications Current Medications Medications Dose Ordered Sig/Adriana Route Start Time Stop Time Status Last Admin Dose Admin Metronidazole 100 ml @ 100 mls/hr Q8HR IV 11/12/24 06:00 11/14/24 05:06 100 MLS/HR Acetaminophen/ Hydrocodone Bitart 1 tab Q4HP PRN PO 11/11/24 21:00 11/13/24 21:08 1 TAB Ondansetron HCl 4 mg Q4HP PRN IV 11/11/24 21:00 11/12/24 15:53 4 MG Acetaminophen 650 mg Q6HP PRN PO 11/11/24 21:00 Morphine Sulfate 2 mg Q4HPRN PRN IV 11/11/24 21:00 11/12/24 15:58 2 MG Nitroglycerin 0.4 mg Q5MINP PRN SL 11/11/24 22:15 Morphine Sulfate 2 mg Q30M PRN IV 11/11/24 22:15 Lactated Ringer's 1,000 ml @ 125 mls/hr Q8H IV 11/13/24 16:30 11/13/24 16:30 125 MLS/HR Meropenem 250 ml @ 83.3 mls/hr Q8HR IV 11/13/24 22:00 11/14/24 05:06 83.3 MLS/HR Multivitamins/ Minerals 1 tab DAILY PO 11/14/24 10:00 11/14/24 10:51 1 TAB Thiamine HCl 100 mg DAILY IV 11/14/24 10:00 11/14/24 10:52 100 MG Folic Acid 1 mg/ Dextrose 50.2 ml @ 200.8 mls/ hr DAILY INJ 11/14/24 10:00 11/14/24 11:44 200.8 MLS/HR Laboratory Results Laboratory Tests 11/13/24 05:57 11/14/24 05:24 Chemistry Test 11/14/24 05:24 Albumin 3.7 g/dL (3.2-4.8) Calcium Level 8.5 mg/dL (8.7-10.4) L Magnesium Level 2.1 mg/dL (1.6-2.6) Phosphorus Level 1.4 mg/dL (2.4-5.1) L Total Protein 6.1 g/dL (5.7-8.2) Lipid panel Test 11/14/24 05:24 Cholesterol Level 111 mg/dL (< 200) HDL Cholesterol 57 mg/dL (40-59) Lipase 322 U/L (12-53) H Triglycerides Level 59 mg/dL (< 150) LFT Test 11/14/24 05:24 Alanine Aminotransferase (ALT) < 9 U/L (7-40) Alkaline Phosphatase 51 U/L (46-116) Aspartate Amino Transferase (AST) 14 U/L (13-40) Total Bilirubin 0.6 mg/dL (0.2-1.0) HgA1c, TSH Test 11/14/24 05:24 Hemoglobin A1c 4.3 % A1C (<5.7) Urinalysis Test 11/11/24 18:10 11/14/24 10:33 Urine Color Light-orange (Yellow) Urine Clarity Turbid (Clear) H Urine pH 6.0 (5.0-9.0) Urine Specific [place] 1.033 (1.001-1.035) Urine Protein 1+ (Negative) H Urine Ketones 1+ (Negative) H Urine Blood 2+ /uL (Negative) H Urine Nitrite Negative (Negative) Urine Bilirubin Negative (Negative) Urine Urobilinogen Normal mg/dL (Negative) Urine Leukocyte Esterase Negative /uL (Negative) Urine RBC 3 /hpf (0 - 4) Urine Microscopic WBC 1 /HPF (0-5) Urine Squamous Epithelial Cells Few /hpf (<5) Urine Bacteria Few /hpf (None Seen) H Urine Mucus Few (None Seen) Urine Glucose Normal mg/dL (Normal) Urine Potassium Pending Microbiology Microbiology Date/Time Source Procedure Growth Status 11/11/24 20:49 Blood Blood Culture - Preliminary NO GROWTH AFTER 48 HOURS OF INCUBATION. 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 10:45 Urine Potassium LAB 11/14/24 In Process 10:33 Full Code RENNY 11/14/24 Transmitted 12:03 Potassium LAB 11/14/24 Transmitted 15:00 Basic Metabolic Panel LAB 11/15/24 Verified 04:00 Magnesium LAB 11/15/24 Verified 04:00 Potassium Phosphate PHA 11/14/24 Transmitted 12:15 Date of Service: Nov 14, 2024 Billing Provider: MYKEL MESA MD Common Visit Codes: [id number] CARE 30-74 MIN MYKEL MESA MD Nov 14, 2024 12:06
--- NOTE | 2024-11-14 15:02 | MEDREC ---
[facility] Intervention Section I [facility] Intervention: Duplication of therapy (PLEASE CONSIDER D/C FLAGYL SINCE BOTH MEROPENEM AND FLAGYL COVER FOR ANAEROBE ORGANISMS (DUPLICATE) ) DANIE FOUNTAIN PHARMACIST Nov 14, 2024 15:02
[2024-11-14] MEDS: POTASSIUM CHLORIDE 60 MEQ, LIDOCAINE 1% (LOCAL ANESTH.) 6 ML in SODIUM CHL 0.9% 500 ML IV ONE (15:10)
[2024-11-14] MEDS: ERGOCALCIFEROL 50,000 UNIT(1.25MG) CAP PO SCH (15:10)
--- NOTE | 2024-11-14 16:58 | DVHPN2 ---
Progress Note - Dictate Date Seen: Nov 14, 2024 Medical Necessity Reason Pt with a Central, PICC or Fol: No Subjective Patient seen at bedside She is feeling better Patient is tolerating clear liquid diet Lipase is trending down vital signs Vital Sign Date Time Temp Pulse Resp B/P (MAP) Pulse Ox O2 Delivery O2 Flow Rate FiO2 11/14/24 14:09 98.0 97 16 133/93 (106) 99 98.0 11/14/24 07:54 Room Air* 0 21 Total Intake and Output 11/13/24 11/13/24 11/14/24 15:00 23:00 07:00 Intake Total 250 ml 300 ml 715 ml Balance 250 ml 300 ml 715 ml medications Current Medications Medications Dose Ordered Sig/Adriana Route Start Time Stop Time Status Last Admin Dose Admin Metronidazole 100 ml @ 100 mls/hr Q8HR IV 11/12/24 06:00 11/14/24 13:21 100 MLS/HR Acetaminophen/ Hydrocodone Bitart 1 tab Q4HP PRN PO 11/11/24 21:00 11/13/24 21:08 1 TAB Ondansetron HCl 4 mg Q4HP PRN IV 11/11/24 21:00 11/12/24 15:53 4 MG Acetaminophen 650 mg Q6HP PRN PO 11/11/24 21:00 Morphine Sulfate 2 mg Q4HPRN PRN IV 11/11/24 21:00 11/12/24 15:58 2 MG Nitroglycerin 0.4 mg Q5MINP PRN SL 11/11/24 22:15 Morphine Sulfate 2 mg Q30M PRN IV 11/11/24 22:15 Lactated Ringer's 1,000 ml @ 125 mls/hr Q8H IV 11/13/24 16:30 11/13/24 16:30 125 MLS/HR Meropenem 250 ml @ 83.3 mls/hr Q8HR IV 11/13/24 22:00 11/14/24 14:57 83.3 MLS/HR Multivitamins/ Minerals 1 tab DAILY PO 11/14/24 10:00 11/14/24 10:51 1 TAB Thiamine HCl 100 mg DAILY IV 11/14/24 10:00 11/14/24 10:52 100 MG Folic Acid 1 mg/ Dextrose 50.2 ml @ 200.8 mls/ hr DAILY INJ 11/14/24 10:00 11/14/24 11:44 200.8 MLS/HR Ergocalciferol 50,000 unit Q7D PO 11/14/24 12:15 11/14/24 15:10 50,000 UNIT objective General Appearance: Alert, Oriented X3, Cooperative, No acute distress HEENT: Atraumatic, PERRLA, EOMI, Mucous membr. moist/pink Neck: Supple Lungs: Clear to auscultation, Normal air movement Cardiovascular: Regular rate, Normal S1, Normal S2, No murmurs, Gallops, Rubs Abdomen: Other (soft nontender) obese Neuro: Cranial nerves 3-12 NL Psych/Mental Status: Mental status NL laboratory and microbiology Laboratory Tests 11/14/24 14:51 11/14/24 05:24 11/13/24 05:57 Test 11/14/24 05:24 Range/Units Serum Glucose 92 74-106 mg/dL Problems(with codes): (1) Leukocytosis (2) Nausea and vomiting (3) Acute abdominal pain (4) Alcohol induced acute pancreatitis without necrosis or infection (5) Acute pancreatitis Prognosis Plan Check repeat CBC CMP and a lipase in a.m. If the lipase level continues to trend downward then we can advance to full liquid diet I will follow up patient with you Plan discussed with: Patient PAULA HAYWARD MD Nov 14, 2024 16:58
[2024-11-14] MEDS: POTASSIUM PHOSPHATE 44 MEQ in D5W 5% 250 ML IV ONE (21:55)
[2024-11-14] MEDS: ACETAMINOPHEN 325 MG TAB PO PRN (22:14)
[2024-11-15] VITALS (8 sets, daily range): BP systolic 107–136; BP diastolic 69–89; PULSE 88–118; RESP 18–19; TEMP 97.8–98.7; O2SAT 94–97
[2024-11-15 06:32] LABS: Basophils # (auto) 0 10 ^3/uL (0-0.2); Basophils % (auto) 0.3 % (0.0-2.0); Eosinophils # (auto) 0.1 10 ^3/uL (0-0.8); Eosinophils % (auto) 0.4 % (0.0-7.0); Hematocrit 35.7 % (36.0-46.0); Hemoglobin 12.3 g/dL (12.2-16.2); Lymphocytes # (auto) 1.2 10 ^3/uL (0.4-5.4); Lymphocytes % (auto) 8.3 % (10.0-50.0); Mean Corpuscular Hemoglobin 32.7 pg (28.0-32.0); Mean Corpuscular Hgb Conc. 34.4 g/dL (32.0-36.0); Mean Corpuscular Volume 94.9 fL (80.0-100.0); Monocytes % (auto) 7.1 % (0.0-12.0); Neutrophils % (auto) 83.9 % (37.0-80.0); Platelet Count (auto) 240 10^3/uL (140-450); Red Blood Cells 3.76 10^6/uL (4.0-5.20); Red Cell Distribution Width 12.5 % (11.8-14.3); White Blood Cell 14.3 10^3/uL (4.4-10.8)
[2024-11-15 06:45] LABS: Chloride 104 mmol/L (98-107); Sodium 138 mmol/L (136-145)
[2024-11-15 06:46] LABS: Anion Gap 11 (5-15); Carbon Dioxide 23 mmol/L (20-31)
[2024-11-15 06:51] LABS: Glucose 96 mg/dL (74-106)
[2024-11-15 06:52] LABS: BUN/Creatinine Ratio 10.9 (10.0-20.0); Blood Urea Nitrogen < 5 mg/dL (9-23); Calcium 8.6 mg/dL (8.7-10.4); Lipase 212 U/L (12-53); Potassium 3.1 mmol/L (3.5-5.1)
[2024-11-15] MEDS: SPIRONOLACTONE 25 MG TAB PO ONE (12:11)
[2024-11-15] MEDS: POTASSIUM CHL 20 Meq TABLET PO ONE (12:12)
--- NOTE | 2024-11-15 16:31 | DVHPN2 ---
Subjective Seen and examined at bedside. Abdominal pain improving. Continue to supplement potassium. Reviewed: Care Plan, H&P, Labs, Medications, Previous Orders, Radiology Changes from previous H/P or p: No Changes Eyes: No Pain, No Vision change, No Conjunctivae inflammation, No Eyelid inflammation, No Other, No Redness ENT: No Ear pain, No Ear discharge, No Nose pain, No Nose discharge, No Nose congestion, No Mouth pain, No Mouth swelling, No Throat pain, No Throat swelling, No Other Cardiovascular: No Chest Pain, No Palpitations, No Orthopnea, No Paroxysmal Noc. Dyspnea, No Edema, No Lt Headedness, No Other Respiratory: No Cough, No Dry, No Shortness of breath, No SOB with excertion, No Wheezing, No Hemoptysis, No Pleuritic Pain, No Sputum, No Other Gastrointestinal: No Nausea, No Vomiting, No Abdominal Pain, No Diarrhea, No Constipation, No Melena, No Hematochezia, No Other Genitourinary: No Dysuria, No Frequency, No Incontinence, No Hematuria, No Retention, No Other Musculoskeletal: No other, No neck pain, No shoulder pain, No arm pain, No back pain, No hand pain, No leg pain, No foot pain Skin: No Rash, No Lesions, No Jaundice, No Bruising, No Other Objective Vitals Vital Signs Date Time Temp Pulse Resp B/P (MAP) Pulse Ox O2 Delivery O2 Flow Rate FiO2 11/15/24 12:52 98.6 104 19 136/84 (101) 94 98.6 11/15/24 08:00 Room Air* 0 21 Intake/Output Intake and Output 11/15/24 07:00 Intake Total 2661.2 ml Output Total 5 ml Balance 2656.2 ml Intake Oral 1275 ml IV Total 1386.2 ml Output Urine Total 5 ml # Voids 5 # Bowel Movements 2 General Appearance: Alert, Oriented X3, Cooperative, No acute distress HEENT: Atraumatic, PERRLA, EOMI, Mucous membr. moist/pink Neck: Supple Lungs: Clear to auscultation, Normal air movement Cardiovascular: Regular rate, Normal S1, Normal S2, No murmurs, Gallops, Rubs Abdomen: Other (Obese, Tenderness) Neuro: Cranial nerves 3-12 NL Psych/Mental Status: Mental status NL Medications Current Medications Medications Dose Ordered Sig/Adriana Route Start Time Stop Time Status Last Admin Dose Admin Metronidazole 100 ml @ 100 mls/hr Q8HR IV 11/12/24 06:00 11/15/24 14:12 100 MLS/HR Acetaminophen/ Hydrocodone Bitart 1 tab Q4HP PRN PO 11/11/24 21:00 11/13/24 21:08 1 TAB Ondansetron HCl 4 mg Q4HP PRN IV 11/11/24 21:00 11/12/24 15:53 4 MG Acetaminophen 650 mg Q6HP PRN PO 11/11/24 21:00 11/15/24 10:40 650 MG Morphine Sulfate 2 mg Q4HPRN PRN IV 11/11/24 21:00 11/12/24 15:58 2 MG Nitroglycerin 0.4 mg Q5MINP PRN SL 11/11/24 22:15 Morphine Sulfate 2 mg Q30M PRN IV 11/11/24 22:15 Lactated Ringer's 1,000 ml @ 125 mls/hr Q8H IV 11/13/24 16:30 11/13/24 16:30 125 MLS/HR Meropenem 250 ml @ 83.3 mls/hr Q8HR IV 11/13/24 22:00 11/15/24 14:49 83.3 MLS/HR Multivitamins/ Minerals 1 tab DAILY PO 11/14/24 10:00 11/15/24 10:24 1 TAB Thiamine HCl 100 mg DAILY IV 11/14/24 10:00 11/15/24 10:24 100 MG Folic Acid 1 mg/ Dextrose 50.2 ml @ 200.8 mls/ hr DAILY INJ 11/14/24 10:00 11/15/24 10:25 200.8 MLS/HR Ergocalciferol 50,000 unit Q7D PO 11/14/24 12:15 11/14/24 15:10 50,000 UNIT Spironolactone 12.5 mg DAILY PO 11/16/24 10:00 Laboratory Results Laboratory Tests 11/15/24 05:31 Chemistry Test 11/15/24 05:31 Calcium Level 8.6 mg/dL (8.7-10.4) L Magnesium Level 2.0 mg/dL (1.6-2.6) Lipid panel Test 11/15/24 05:31 Lipase 212 U/L (12-53) H Urinalysis Test 11/11/24 18:10 11/14/24 10:33 Urine Color Light-orange (Yellow) Urine Clarity Turbid (Clear) H Urine pH 6.0 (5.0-9.0) Urine Specific [place] 1.033 (1.001-1.035) Urine Protein 1+ (Negative) H Urine Ketones 1+ (Negative) H Urine Blood 2+ /uL (Negative) H Urine Nitrite Negative (Negative) Urine Bilirubin Negative (Negative) Urine Urobilinogen Normal mg/dL (Negative) Urine Leukocyte Esterase Negative /uL (Negative) Urine RBC 3 /hpf (0 - 4) Urine Microscopic WBC 1 /HPF (0-5) Urine Squamous Epithelial Cells Few /hpf (<5) Urine Bacteria Few /hpf (None Seen) H Urine Mucus Few (None Seen) Urine Glucose Normal mg/dL (Normal) Urine Potassium 36 mmol/L (12-62) Microbiology Microbiology Date/Time Source Procedure Growth Status 11/11/24 20:49 Blood Blood Culture - Preliminary NO GROWTH AFTER 72 HOURS OF INCUBATION. 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
--- NOTE | 2024-11-15 21:08 | DVHPN2 ---
Progress Note - Dictate Date Seen: Nov 15, 2024 Medical Necessity Reason Pt with a Central, PICC or Fol: No Subjective She is feeling better Patient is tolerating full liquid diet Lipase is trending down;212 vital signs Vital Sign Date Time Temp Pulse Resp B/P (MAP) Pulse Ox O2 Delivery O2 Flow Rate FiO2 11/15/24 20:53 98.6 114 18 126/86 (99) 94 98.6 11/15/24 08:00 Room Air* 0 21 Total Intake and Output 11/14/24 11/14/24 11/15/24 15:00 23:00 07:00 Intake Total 350 ml 1461.2 ml 850 ml Output Total 5 ml Balance 350 ml 1456.2 ml 850 ml medications Current Medications Medications Dose Ordered Sig/Adriana Route Start Time Stop Time Status Last Admin Dose Admin Acetaminophen/ Hydrocodone Bitart 1 tab Q4HP PRN PO 11/11/24 21:00 11/15/24 18:54 1 TAB Ondansetron HCl 4 mg Q4HP PRN IV 11/11/24 21:00 11/12/24 15:53 4 MG Acetaminophen 650 mg Q6HP PRN PO 11/11/24 21:00 11/15/24 10:40 650 MG Morphine Sulfate 2 mg Q4HPRN PRN IV 11/11/24 21:00 11/12/24 15:58 2 MG Nitroglycerin 0.4 mg Q5MINP PRN SL 11/11/24 22:15 Morphine Sulfate 2 mg Q30M PRN IV 11/11/24 22:15 Lactated Ringer's 1,000 ml @ 125 mls/hr Q8H IV 11/13/24 16:30 11/15/24 18:49 125 MLS/HR Meropenem 250 ml @ 83.3 mls/hr Q8HR IV 11/13/24 22:00 11/15/24 14:49 83.3 MLS/HR Multivitamins/ Minerals 1 tab DAILY PO 11/14/24 10:00 11/15/24 10:24 1 TAB Thiamine HCl 100 mg DAILY IV 11/14/24 10:00 11/15/24 10:24 100 MG Folic Acid 1 mg/ Dextrose 50.2 ml @ 200.8 mls/ hr DAILY INJ 11/14/24 10:00 11/15/24 10:25 200.8 MLS/HR Ergocalciferol 50,000 unit Q7D PO 11/14/24 12:15 11/14/24 15:10 50,000 UNIT Spironolactone 12.5 mg DAILY PO 11/16/24 10:00 objective General Appearance: Alert, Oriented X3, Cooperative, No acute distress HEENT: Atraumatic, PERRLA, EOMI, Mucous membr. moist/pink Neck: Supple Lungs: Clear to auscultation, Normal air movement Cardiovascular: Regular rate, Normal S1, Normal S2, No murmurs, Gallops, Rubs Abdomen: Other (soft nontender) obese Neuro: Cranial nerves 3-12 NL Psych/Mental Status: Mental status NL laboratory and microbiology Laboratory Tests 11/15/24 05:31 Test 11/15/24 05:31 Range/Units Serum Glucose 96 74-106 mg/dL Problems(with codes): (1) Leukocytosis (2) Nausea and vomiting (3) Acute abdominal pain (4) Alcohol induced acute pancreatitis without necrosis or infection (5) Acute pancreatitis Prognosis Plan Continue to replace potassium for her hypokalemia Advance to soft mechanical diet in a.m. Monitor labs Discharge planning as per hospitalist once medically stabilized Plan discussed with: Patient PAULA HAYWARD MD Nov 15, 2024 21:08
[2024-11-16] VITALS (8 sets, daily range): BP systolic 110–141; BP diastolic 65–103; PULSE 100–127; RESP 18–19; TEMP 98.4–98.7; O2SAT 94–96
[2024-11-16 06:58] LABS: Basophils # (auto) 0.1 10 ^3/uL (0-0.2); Basophils % (auto) 0.5 % (0.0-2.0); Eosinophils # (auto) 0.2 10 ^3/uL (0-0.8); Eosinophils % (auto) 1.4 % (0.0-7.0); Hematocrit 34.9 % (36.0-46.0); Hemoglobin 12.1 g/dL (12.2-16.2); Lymphocytes # (auto) 1.3 10 ^3/uL (0.4-5.4); Lymphocytes % (auto) 8.8 % (10.0-50.0); Mean Corpuscular Hemoglobin 32.9 pg (28.0-32.0); Mean Corpuscular Hgb Conc. 34.7 g/dL (32.0-36.0); Monocytes # (auto) 1.2 10 ^3/uL (0-1.3); Neutrophils # (auto) 12.3 10 ^3/uL (1.6-8.6); Neutrophils % (auto) 81.3 % (37.0-80.0); Platelet Count (auto) 275 10^3/uL (140-450); Red Blood Cells 3.67 10^6/uL (4.0-5.20); Red Cell Distribution Width 12.5 % (11.8-14.3); White Blood Cell 15.1 10^3/uL (4.4-10.8)
[2024-11-16 07:05] LABS: Anion Gap 6 (5-15); Calcium 9.2 mg/dL (8.7-10.4); Carbon Dioxide 26 mmol/L (20-31); Chloride 105 mmol/L (98-107); Potassium 3.8 mmol/L (3.5-5.1); Sodium 137 mmol/L (136-145)
[2024-11-16 07:10] LABS: Glucose 99 mg/dL (74-106)
[2024-11-16 07:11] LABS: Magnesium 2.1 mg/dL (1.6-2.6)
[2024-11-16 07:16] LABS: BUN/Creatinine Ratio 9.1 (10.0-20.0); Blood Urea Nitrogen < 5 mg/dL (9-23)
[2024-11-16 07:50] LABS: Lipase 234 U/L (12-53)
[2024-11-16] MEDS: SPIRONOLACTONE 25 MG TAB PO SCH (09:25)
--- NOTE | 2024-11-16 14:31 | DVH ---
XY CHEST PORTABLE, HISTORY: sob COMPARISON: None None TECHNICAL DATA: 1 view of the chest was obtained. FINDINGS: Lines and tubes: None Cardiomediastinal silhouette: normal Pulmonary vasculature: normal Lung expansion: normal Lung airspace: Left basilar airspace opacity with a small left pleural effusion. Lung interstitium: normal Pleura: normal Pneumothorax: no Bones: Unremarkable Other: no IMPRESSION: Left basilar airspace opacity with a small left pleural effusion.
--- NOTE | 2024-11-16 17:39 | DVHPN2 ---
Subjective Seen and examined at bedside. Abdominal pain improving. However, WBC still elevated and patient is tachycardic. Will get CT Chest of the abdomen with pancreatic protocol. Reviewed: Care Plan, H&P, Labs, Medications, Previous Orders, Radiology Changes from previous H/P or p: No Changes Eyes: No Pain, No Vision change, No Conjunctivae inflammation, No Eyelid inflammation, No Other, No Redness ENT: No Ear pain, No Ear discharge, No Nose pain, No Nose discharge, No Nose congestion, No Mouth pain, No Mouth swelling, No Throat pain, No Throat swelling, No Other Cardiovascular: No Chest Pain, No Palpitations, No Orthopnea, No Paroxysmal Noc. Dyspnea, No Edema, No Lt Headedness, No Other Respiratory: No Cough, No Dry, No Shortness of breath, No SOB with excertion, No Wheezing, No Hemoptysis, No Pleuritic Pain, No Sputum, No Other Gastrointestinal: No Nausea, No Vomiting, No Abdominal Pain, No Diarrhea, No Constipation, No Melena, No Hematochezia, No Other Genitourinary: No Dysuria, No Frequency, No Incontinence, No Hematuria, No Retention, No Other Musculoskeletal: No other, No neck pain, No shoulder pain, No arm pain, No back pain, No hand pain, No leg pain, No foot pain Skin: No Rash, No Lesions, No Jaundice, No Bruising, No Other Objective Vitals Vital Signs Date Time Temp Pulse Resp B/P (MAP) Pulse Ox O2 Delivery O2 Flow Rate FiO2 11/16/24 17:00 98.7 104 18 134/103 (113) 94 98.7 11/16/24 07:45 Room Air* 0 21 Intake/Output Intake and Output 11/16/24 07:00 Intake Total 2436 ml Balance 2436 ml Intake Oral 2186 ml IV Total 250 ml # Voids 8 # Bowel Movements 2 General Appearance: Alert, Oriented X3, Cooperative, No acute distress HEENT: Atraumatic, PERRLA, EOMI, Mucous membr. moist/pink Neck: Supple Lungs: Clear to auscultation, Normal air movement Cardiovascular: Regular rate, Normal S1, Normal S2, No murmurs, Gallops, Rubs Abdomen: Other (Obese, Tenderness) Neuro: Cranial nerves 3-12 NL Psych/Mental Status: Mental status NL Medications Current Medications Medications Dose Ordered Sig/Adriana Route Start Time Stop Time Status Last Admin Dose Admin Acetaminophen/ Hydrocodone Bitart 1 tab Q4HP PRN PO 11/11/24 21:00 11/15/24 18:54 1 TAB Ondansetron HCl 4 mg Q4HP PRN IV 11/11/24 21:00 11/12/24 15:53 4 MG Acetaminophen 650 mg Q6HP PRN PO 11/11/24 21:00 11/16/24 12:02 650 MG Morphine Sulfate 2 mg Q4HPRN PRN IV 11/11/24 21:00 11/12/24 15:58 2 MG Nitroglycerin 0.4 mg Q5MINP PRN SL 11/11/24 22:15 Morphine Sulfate 2 mg Q30M PRN IV 11/11/24 22:15 Lactated Ringer's 1,000 ml @ 125 mls/hr Q8H IV 11/13/24 16:30 11/16/24 15:15 125 MLS/HR Meropenem 250 ml @ 83.3 mls/hr Q8HR IV 11/13/24 22:00 11/16/24 15:14 83.3 MLS/HR Multivitamins/ Minerals 1 tab DAILY PO 11/14/24 10:00 11/16/24 09:25 1 TAB Thiamine HCl 100 mg DAILY IV 11/14/24 10:00 11/16/24 09:26 100 MG Folic Acid 1 mg/ Dextrose 50.2 ml @ 200.8 mls/ hr DAILY INJ 11/14/24 10:00 11/16/24 09:26 200.8 MLS/HR Ergocalciferol 50,000 unit Q7D PO 11/14/24 12:15 11/14/24 15:10 50,000 UNIT Spironolactone 12.5 mg DAILY PO 11/16/24 10:00 11/16/24 09:25 12.5 MG Laboratory Results Laboratory Tests 11/16/24 06:00 Chemistry Test 11/16/24 06:00 Calcium Level 9.2 mg/dL (8.7-10.4) Magnesium Level 2.1 mg/dL (1.6-2.6) Lipid panel Test 11/16/24 06:00 Lipase 234 U/L (12-53) H Urinalysis Test 11/11/24 18:10 11/14/24 10:33 Urine Color Light-orange (Yellow) Urine Clarity Turbid (Clear) H Urine pH 6.0 (5.0-9.0) Urine Specific [place] 1.033 (1.001-1.035) Urine Protein 1+ (Negative) H Urine Ketones 1+ (Negative) H Urine Blood 2+ /uL (Negative) H Urine Nitrite Negative (Negative) Urine Bilirubin Negative (Negative) Urine Urobilinogen Normal mg/dL (Negative) Urine Leukocyte Esterase Negative /uL (Negative) Urine RBC 3 /hpf (0 - 4) Urine Microscopic WBC 1 /HPF (0-5) Urine Squamous Epithelial Cells Few /hpf (<5) Urine Bacteria Few /hpf (None Seen) H Urine Mucus Few (None Seen) Urine Glucose Normal mg/dL (Normal) Urine Potassium 36 mmol/L (12-62) Microbiology Microbiology Date/Time Source Procedure Growth Status 11/11/24 20:49 Blood Blood Culture - Preliminary NO GROWTH AFTER 72 HOURS OF INCUBATION. 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 # Hypokalemia - Supplement # Vitamin D Def- Supplement critical care time 39 mins Plan discussed with: Patient My Orders Orders - MYKEL MESA MD Procedure Category Date Status Time January Shower [facility] 11/15/24 In Process 19:12 Chest Portable XY 11/16/24 Resulted 13:44 Urine Bacterial OCTAVIANO 11/16/24 Logged Culture 13:45 Basic Metabolic Panel LAB 11/17/24 Verified 04:00 Complete Blood Count LAB 11/17/24 Verified 04:00 Magnesium LAB 11/17/24 Verified 04:00 Phosphorus LAB 11/17/24 Verified 04:[address] 11/16/24 Logged 16:03 Date of Service: Nov 16, 2024 Billing Provider: MYKEL MESA MD Common Visit Codes: [id number] CARE 30-74 MIN MYKEL MESA MD Nov 16, 2024 17:39
--- NOTE | 2024-11-16 18:59 | DVHPN2 ---
Progress Note - Dictate Date Seen: Nov 16, 2024 Medical Necessity Reason Pt with a Central, PICC or Fol: No Subjective persistent leukocytosis and mild abd pain Patient is tolerating soft diet Lipase is trending up;234 vital signs Vital Sign Date Time Temp Pulse Resp B/P (MAP) Pulse Ox O2 Delivery O2 Flow Rate FiO2 11/16/24 17:00 98.7 104 18 134/103 (113) 94 98.7 11/16/24 07:45 Room Air* 0 21 Total Intake and Output 11/15/24 11/15/24 11/16/24 15:00 23:00 07:00 Intake Total 1406 ml 680 ml 350 ml Balance 1406 ml 680 ml 350 ml medications Current Medications Medications Dose Ordered Sig/Adriana Route Start Time Stop Time Status Last Admin Dose Admin Acetaminophen/ Hydrocodone Bitart 1 tab Q4HP PRN PO 11/11/24 21:00 11/15/24 18:54 1 TAB Ondansetron HCl 4 mg Q4HP PRN IV 11/11/24 21:00 11/12/24 15:53 4 MG Acetaminophen 650 mg Q6HP PRN PO 11/11/24 21:00 11/16/24 12:02 650 MG Morphine Sulfate 2 mg Q4HPRN PRN IV 11/11/24 21:00 11/12/24 15:58 2 MG Nitroglycerin 0.4 mg Q5MINP PRN SL 11/11/24 22:15 Morphine Sulfate 2 mg Q30M PRN IV 11/11/24 22:15 Lactated Ringer's 1,000 ml @ 125 mls/hr Q8H IV 11/13/24 16:30 11/16/24 15:15 125 MLS/HR Meropenem 250 ml @ 83.3 mls/hr Q8HR IV 11/13/24 22:00 11/16/24 15:14 83.3 MLS/HR Multivitamins/ Minerals 1 tab DAILY PO 11/14/24 10:00 11/16/24 09:25 1 TAB Thiamine HCl 100 mg DAILY IV 11/14/24 10:00 11/16/24 09:26 100 MG Folic Acid 1 mg/ Dextrose 50.2 ml @ 200.8 mls/ hr DAILY INJ 11/14/24 10:00 11/16/24 09:26 200.8 MLS/HR Ergocalciferol 50,000 unit Q7D PO 11/14/24 12:15 11/14/24 15:10 50,000 UNIT Spironolactone 12.5 mg DAILY PO 11/16/24 10:00 11/16/24 09:25 12.5 MG objective General Appearance: Alert, Oriented X3, Cooperative, No acute distress HEENT: Atraumatic, PERRLA, EOMI, Mucous membr. moist/pink Neck: Supple Lungs: Clear to auscultation, Normal air movement Cardiovascular: Regular rate, Normal S1, Normal S2, No murmurs, Gallops, Rubs Abdomen: Other (soft nontender) obese Neuro: Cranial nerves 3-12 NL Psych/Mental Status: Mental status NL laboratory and microbiology Laboratory Tests 11/16/24 06:00 Test 11/16/24 06:00 Range/Units Serum Glucose 99 74-106 mg/dL Problems(with codes): (1) Leukocytosis (2) Nausea and vomiting (3) Acute abdominal pain (4) Alcohol induced acute pancreatitis without necrosis or infection (5) Acute pancreatitis Prognosis PLAN Change diet back to clear liquid Monitor labs IV Abx Repeat Abd Pelvic CT tomorrow Plan discussed with: Other PAULA HAYWARD MD Nov 16, 2024 18:59
[2024-11-17 01:00] VITALS: BP 127/89; PULSE 106; RESP 17; TEMP 98.9; O2SAT 95
[2024-11-17 05:00] VITALS: BP 126/86; PULSE 102; RESP 19; TEMP 98.2; O2SAT 95
[2024-11-17 07:00] LABS: Basophils # (auto) 0.1 10 ^3/uL (0-0.2); Basophils % (auto) 0.4 % (0.0-2.0); Eosinophils # (auto) 0.4 10 ^3/uL (0-0.8); Eosinophils % (auto) 2.2 % (0.0-7.0); Hematocrit 35.2 % (36.0-46.0); Hemoglobin 12.1 g/dL (12.2-16.2); Lymphocytes # (auto) 1.5 10 ^3/uL (0.4-5.4); Lymphocytes % (auto) 9.7 % (10.0-50.0); Mean Corpuscular Hemoglobin 32.5 pg (28.0-32.0); Mean Corpuscular Hgb Conc. 34.3 g/dL (32.0-36.0); Monocytes # (auto) 1.5 10 ^3/uL (0-1.3); Monocytes % (auto) 9.6 % (0.0-12.0); Neutrophils # (auto) 12.4 10 ^3/uL (1.6-8.6); Neutrophils % (auto) 78.1 % (37.0-80.0); Platelet Count (auto) 340 10^3/uL (140-450); Red Cell Distribution Width 12.5 % (11.8-14.3); White Blood Cell 15.9 10^3/uL (4.4-10.8)
[2024-11-17 07:16] LABS: Chloride 104 mmol/L (98-107); Potassium 3.6 mmol/L (3.5-5.1); Sodium 138 mmol/L (136-145)
[2024-11-17 07:17] LABS: Anion Gap 9 (5-15); Calcium 9.4 mg/dL (8.7-10.4); Carbon Dioxide 25 mmol/L (20-31)
[2024-11-17 07:22] LABS: Glucose 105 mg/dL (74-106)
[2024-11-17 07:23] LABS: BUN/Creatinine Ratio 11.3 (10.0-20.0); Magnesium 2.1 mg/dL (1.6-2.6)
[2024-11-17 07:28] LABS: Blood Urea Nitrogen 6 mg/dL (9-23)
[2024-11-17 08:47] LABS: Lipase 316 U/L (12-53)
--- NOTE | 2024-11-17 11:33 | DVHDS2 ---
Discharge Summary Date of Admission Nov 11, 2024 at 22:05 Date of Discharge: Nov 17, 2024 Admitting Diagnosis Acute Pancreatitis Labs/Diagnostic Data: Laboratory Results Test 11/17/24 06:10 11/16/24 06:00 11/14/24 10:33 11/14/24 05:24 White Blood Count 15.9 10^3/uL (4.4-10.8) Red Blood Count 3.70 10^6/uL (4.0-5.20) Hemoglobin 12.1 g/dL (12.2-16.2) Hematocrit 35.2 % (36.0-46.0) Mean Corpuscular Volume 95.0 fL (80.0-100.0) Mean Corpuscular Hemoglobin 32.5 pg (28.0-32.0) Mean Corpuscular Hemoglobin Concent 34.3 g/dL (32.0-36.0) Red Cell Distribution Width 12.5 % (11.8-14.3) Platelet Count 340 10^3/uL (140-450) Mean Platelet Volume 8.5 fL (6.9-10.8) Neutrophils (%) (Auto) 78.1 % (37.0-80.0) Lymphocytes (%) (Auto) 9.7 % (10.0-50.0) Monocytes (%) (Auto) 9.6 % (0.0-12.0) Eosinophils (%) (Auto) 2.2 % (0.0-7.0) Basophils (%) (Auto) 0.4 % (0.0-2.0) Neutrophils # (Auto) 12.4 10 ^3/uL (1.6-8.6) Lymphocytes # (Auto) 1.5 10 ^3/uL (0.4-5.4) Monocytes # (Auto) 1.5 10 ^3/uL (0-1.3) Eosinophils # (Auto) 0.4 10 ^3/uL (0-0.8) Basophils # (Auto) 0.1 10 ^3/uL (0-0.2) Nucleated Red Blood Cells 0.0 % Sodium Level 138 mmol/L (136-145) Potassium Level 3.6 mmol/L (3.5-5.1) Chloride Level 104 mmol/L (98-107) Carbon Dioxide Level 25 mmol/L (20-31) Anion Gap 9 (5-15) Blood Urea Nitrogen 6 mg/dL (9-23) Creatinine 0.53 mg/dL (0.550-1.02) Glomerular Filtration Rate Calc 125 mL/min (>90) BUN/Creatinine Ratio 11.3 (10.0-20.0) Serum Glucose 105 mg/dL (74-106) Calcium Level 9.4 mg/dL (8.7-10.4) Phosphorus Level 3.0 mg/dL (2.4-5.1) Magnesium Level 2.1 mg/dL (1.6-2.6) Lipase 316 U/L (12-53) Thyroid Stimulating Hormone (TSH) 1.08 uIU/mL (0.55-4.78) Free Thyroxine (T4) Calculated 1.30 ng/dL (0.89-1.76) Urine Potassium 36 mmol/L (12-62) Hemoglobin A1c 4.3 % A1C (<5.7) Total Bilirubin 0.6 mg/dL (0.2-1.0) Aspartate Amino Transferase (AST) 14 U/L (13-40) Alanine Aminotransferase (ALT) < 9 U/L (7-40) Alkaline Phosphatase 51 U/L (46-116) Total Protein 6.1 g/dL (5.7-8.2) Albumin 3.7 g/dL (3.2-4.8) Triglycerides Level 59 mg/dL (< 150) Cholesterol Level 111 mg/dL (< 200) LDL Cholesterol 39 mg/dL (< 100) HDL Cholesterol 57 mg/dL (40-59) Test 11/13/24 05:57 11/11/24 20:43 11/11/24 19:26 11/11/24 18:29 Differential Total Cells Counted 100.0 (100) Neutrophils % (Manual) 91 (37.0-80.0) Band Neutrophils % (Manual) 0 Lymphocytes % (Manual) 5 (10.0-50.0) Monocytes % (Manual) 4 (0-12) Eosinophils % (Manual) 0 (0-7) Basophils % (Manual) 0 (0.0-2.0) Metamyelocytes % (manual) 0 Myelocytes % (Manual) 0 Promyelocytes % (Manual) 0 Blast Cells % (Manual) 0 Reactive Lymphocytes 0 Platelet Estimate Adequate Vitamin D 25-Hydroxy 4.7 ng/mL (30.0-100) Lactic Acid Level 2.0 mmol/L (0.4-2.0) Influenza Type A Antigen Negative (Negative) Influenza Type B Antigen Negative (Negative) SARS-CoV-2 Antigen (Rapid) Negative (NEGATIVE) Lactate Dehydrogenase 257 U/L (120-246) Test 11/11/24 18:10 Urine Color Light-orange (Yellow) Urine Clarity Turbid (Clear) Urine pH 6.0 (5.0-9.0) Urine Specific [place] 1.033 (1.001-1.035) Urine Protein 1+ (Negative) Urine Ketones 1+ (Negative) Urine Blood 2+ /uL (Negative) Urine Nitrite Negative (Negative) Urine Bilirubin Negative (Negative) Urine Urobilinogen Normal mg/dL (Negative) Urine Leukocyte Esterase Negative /uL (Negative) Urine RBC 3 /hpf (0 - 4) Urine Microscopic WBC 1 /HPF (0-5) Urine Squamous Epithelial Cells Few /hpf (<5) Urine Bacteria Few /hpf (None Seen) Urine Mucus Few (None Seen) Urine Glucose Normal mg/dL (Normal) Other Laboratory Tests 11/17/24 06:10 Brief Hx & Hospital Course: Patient is a 34-year-old female morbidly obese presented to the ED with abdominal pain due to alcoholic acute pancreatitis. Patient was being treated with IV fluids and IV antibiotics. However patient left AMA from the facility today. Condition at Discharge: Poor Final Diagnosis/Problems List # SIRS due to Acute Pancreatitis # Alcohol Induced Acute Pancreatitis - Hydrogen Cell Tender on cessation # Morbidly Obese - Hydrogen Cell Tender on weight loss # Hypokalemia - Supplement # Vitamin D Def- Supplement Discharge Disposition: Home Discharge Instruct/Medications Diet: See Comment Activity: Light activity Discharge Statement: "Patient was advised to return to the ER or call 911 if any headaches, dizziness, shortness of breath, chest pain, abdominal pain, bleeding, fevers, or worsening of medical condition. Patient was counseled about treatment plan, medications, possible side effects, patientverbalized understanding. All questions were answered to the best of my ability. This discharge took greater then 30 minutes in planning, reviewing documentation, counseling the patient, and discussing with other team members." ASSESSMENT ASSESSMENT Assessment Date of Service: Nov 17, 2024 Billing Provider: MYKEL MESA MD Common Visit Codes: 20156-KQM/OBS DISCH DAY >30min MYKEL MESA MD Nov 17, 2024 11:33
== END 2024-11-17 08:40 | disposition left against medical advice (07) | DRG 282 ==
LOC: ER 17:37 → OVERFLOW 22:05 → EAST 23:37 → TELE-EAST 11-14 04:25
PROVIDERS: ADMIT Internal Medicine; ATTEND Internal Medicine
DX: K85.20 Alcohol induced acute pancreatitis without necrosis or infection (principal); R65.10 Systemic inflammatory response syndrome (SIRS) of non-infectious origin without acute organ dysfunction; E87.6 Hypokalemia; Z20.822 Contact with and (suspected) exposure to COVID-19; Z53.29 Procedure and treatment not carried out because of patient's decision for other reasons; E66.01 Morbid (severe) obesity due to excess calories; F10.129 Alcohol abuse with intoxication, unspecified; E55.9 Vitamin D deficiency, unspecified; Z79.899 Other long term (current) drug therapy; Z80.8 Family history of malignant neoplasm of other organs or systems; Z80.41 Family history of malignant neoplasm of ovary; Z68.41 Body mass index [BMI] 40.0-44.9, adult; Y90.9 Presence of alcohol in blood, level not specified
CPT/HCPCS: 36415; 71045; 74176; 80048; 80053; 80061; 81001; 82247; 82306; 83036; 83605; 83615; 83690; 83735; 84075; 84100; 84132; 84133; 84439; 84443; 84450; 84460; 85007; 85025; 85027; 87040; 87086; 87426; 87804; 96365; 96368; 96372; G0378; J2003; J2405; J3480; J3490; J7060; Q0162